=== PATIENT | male | born 1965 | race Caucasian/White ===

== ENCOUNTER → 2022-05-09 | Outpatient (CLI) | payer OTHER ==
[~2022-05-09] MED LIST: CEPH500C PO; CHLORHEXIDINE GLUCONATE PO; ENXP80I.8 PO; INSR1U SC; IPRA3AMP11 INH; WRF5T PO
== END ==
LOC: WOUNDCARE 13:46
PROVIDERS: ATTEND Family Medicine
DX: L97.222 Non-pressure chronic ulcer of left calf with fat layer exposed (principal); L03.116 Cellulitis of left lower limb; I70.242 Atherosclerosis of native arteries of left leg with ulceration of calf; I87.332 Chronic venous hypertension (idiopathic) with ulcer and inflammation of left lower extremity; I89.0 Lymphedema, not elsewhere classified; E11.622 Type 2 diabetes mellitus with other skin ulcer; E55.9 Vitamin D deficiency, unspecified; F17.219 Nicotine dependence, cigarettes, with unspecified nicotine-induced disorders; Z86.718 Personal history of other venous thrombosis and embolism
CPT/HCPCS: 87070; 87205; G0463; 99202

== ENCOUNTER → 2022-05-10 | Outpatient (CLI) | payer OTHER ==
--- NOTE | 2022-05-10 14:07 | Diagnostic Imaging Report ---
PROCEDURE: US left lower extremity venous. TECHNIQUE: Multiple Real-time grayscale images were obtained over the left lower extremity in various projections. Additional duplex Doppler and color Doppler images were also obtained. INDICATION: Pain and swelling in the left lower extremity. FINDINGS: Extensive left lower extremity DVT is noted. The common femoral vein appears patent; however, there is occlusive thrombus extending throughout the superficial femoral vein and popliteal vein as well as extension into the peroneal veins. No fluid collections are seen. IMPRESSION: Extensive left lower extremity DVT. Dictated by: Dictated on workstation # [id number]
== END ==
LOC: RAD 13:12
PROVIDERS: ATTEND Family Medicine
DX: I82.402 Acute embolism and thrombosis of unspecified deep veins of left lower extremity (principal); L97.222 Non-pressure chronic ulcer of left calf with fat layer exposed; L03.116 Cellulitis of left lower limb; I70.242 Atherosclerosis of native arteries of left leg with ulceration of calf; I87.332 Chronic venous hypertension (idiopathic) with ulcer and inflammation of left lower extremity; I89.0 Lymphedema, not elsewhere classified; E11.622 Type 2 diabetes mellitus with other skin ulcer; E55.9 Vitamin D deficiency, unspecified; F17.219 Nicotine dependence, cigarettes, with unspecified nicotine-induced disorders
CPT/HCPCS: 36415; 81241; 85300; 85303; 85306; 86147

== ENCOUNTER → 2022-05-16 | Outpatient (CLI) | payer OTHER ==
--- NOTE | 2022-05-16 16:43 | Diagnostic Imaging Report ---
TECHNIQUE: Multiple real-time grayscale images were obtained over the left lower extremity in various projections. Additional duplex Doppler and color Doppler images were also obtained. HISTORY: Ulceration of the calf, atherosclerosis of pilot station arteries left leg. Currently with an extensive left lower extremity DVT. COMPARISON: None FINDINGS: Left lower extremity: The major arteries of the left leg are patent to the ankle. There is detectable flow at the dorsalis pedis and posterior tibial arteries at the ankle. There is abnormal, dampened monophasic waveforms throughout the left lower extremity arterial system. There is no focal velocity changes to suggest a hemodynamically significant stenosis. IMPRESSION: 1. No large vessel occlusion or hemodynamically significant stenosis in the left lower extremity. Diffusely abnormal, dampened monophasic waveforms. May be attributed to the known extensive deep venous thrombosis. Dictated by: Dictated on workstation # [id number]
== END ==
LOC: RAD 15:58
PROVIDERS: ATTEND Family Medicine
DX: I70.242 Atherosclerosis of native arteries of left leg with ulceration of calf (principal)
CPT/HCPCS: 93926

== ENCOUNTER → 2022-05-16 | Outpatient (CLI) | payer OTHER | LOC: WOUNDCARE 14:27 | PROVIDERS: ATTEND Family Medicine | DX: L97.922 Non-pressure chronic ulcer of unspecified part of left lower leg with fat layer exposed (principal); L03.116 Cellulitis of left lower limb; I70.242 Atherosclerosis of native arteries of left leg with ulceration of calf; I87.332 Chronic venous hypertension (idiopathic) with ulcer and inflammation of left lower extremity; I89.0 Lymphedema, not elsewhere classified; E11.622 Type 2 diabetes mellitus with other skin ulcer; F17.219 Nicotine dependence, cigarettes, with unspecified nicotine-induced disorders; E55.9 Vitamin D deficiency, unspecified; I82.4Y2 Acute embolism and thrombosis of unspecified deep veins of left proximal lower extremity; B96.5 Pseudomonas (aeruginosa) (mallei) (pseudomallei) as the cause of diseases classified elsewhere; I96 Gangrene, not elsewhere classified | CPT/HCPCS: 99213 ==

== ENCOUNTER → 2022-05-22 | Outpatient (CLI) | payer OTHER | LOC: WOUNDCARE 16:02 | PROVIDERS: ATTEND Family Medicine | DX: I96 Gangrene, not elsewhere classified (principal); L97.222 Non-pressure chronic ulcer of left calf with fat layer exposed; L03.116 Cellulitis of left lower limb; I82.402 Acute embolism and thrombosis of unspecified deep veins of left lower extremity; I70.242 Atherosclerosis of native arteries of left leg with ulceration of calf; I87.332 Chronic venous hypertension (idiopathic) with ulcer and inflammation of left lower extremity; I89.0 Lymphedema, not elsewhere classified; E11.52 Type 2 diabetes mellitus with diabetic peripheral angiopathy with gangrene; E11.622 Type 2 diabetes mellitus with other skin ulcer; E55.9 Vitamin D deficiency, unspecified; B96.5 Pseudomonas (aeruginosa) (mallei) (pseudomallei) as the cause of diseases classified elsewhere; F17.219 Nicotine dependence, cigarettes, with unspecified nicotine-induced disorders | CPT/HCPCS: 99213 ==

== ENCOUNTER → 2022-05-26 | Outpatient (CLI) | payer OTHER | LOC: CARD 13:30 | PROVIDERS: ATTEND Internal Medicine Cardiovascular Disease | DX: I07.1 Rheumatic tricuspid insufficiency (principal); I11.9 Hypertensive heart disease without heart failure | CPT/HCPCS: 93306 ==

== ENCOUNTER → 2022-05-29 | Outpatient (CLI) | payer OTHER | LOC: WOUNDCARE 14:58 | PROVIDERS: ATTEND Family Medicine | DX: I96 Gangrene, not elsewhere classified (principal); L97.222 Non-pressure chronic ulcer of left calf with fat layer exposed; E11.52 Type 2 diabetes mellitus with diabetic peripheral angiopathy with gangrene; E11.622 Type 2 diabetes mellitus with other skin ulcer; I70.242 Atherosclerosis of native arteries of left leg with ulceration of calf; I82.402 Acute embolism and thrombosis of unspecified deep veins of left lower extremity; I87.332 Chronic venous hypertension (idiopathic) with ulcer and inflammation of left lower extremity; I89.0 Lymphedema, not elsewhere classified; F17.219 Nicotine dependence, cigarettes, with unspecified nicotine-induced disorders | CPT/HCPCS: 11042; 11045; 97607 ==

== ENCOUNTER → 2022-06-05 | Outpatient (CLI) | payer OTHER | LOC: WOUNDCARE 14:46 | PROVIDERS: ATTEND Family Medicine | DX: I96 Gangrene, not elsewhere classified (principal); L97.222 Non-pressure chronic ulcer of left calf with fat layer exposed; E11.52 Type 2 diabetes mellitus with diabetic peripheral angiopathy with gangrene; I70.242 Atherosclerosis of native arteries of left leg with ulceration of calf; I87.332 Chronic venous hypertension (idiopathic) with ulcer and inflammation of left lower extremity; I89.0 Lymphedema, not elsewhere classified; E11.622 Type 2 diabetes mellitus with other skin ulcer; E55.9 Vitamin D deficiency, unspecified; I82.402 Acute embolism and thrombosis of unspecified deep veins of left lower extremity; R77.8 Other specified abnormalities of plasma proteins; F17.218 Nicotine dependence, cigarettes, with other nicotine-induced disorders | CPT/HCPCS: 11042; 11045; 97607 ==

== ENCOUNTER → 2022-06-08 | Outpatient (CLI) | payer OTHER | LOC: WOUNDCARE 15:14 | PROVIDERS: ATTEND Family Medicine | DX: L97.929 Non-pressure chronic ulcer of unspecified part of left lower leg with unspecified severity (principal); J44.9 Chronic obstructive pulmonary disease, unspecified; I10 Essential (primary) hypertension | CPT/HCPCS: 97607 ==

== ENCOUNTER → 2022-06-12 | Outpatient (CLI) | payer OTHER | LOC: WOUNDCARE 15:09 | PROVIDERS: ATTEND Family Medicine | DX: L97.222 Non-pressure chronic ulcer of left calf with fat layer exposed (principal); I70.242 Atherosclerosis of native arteries of left leg with ulceration of calf; I87.332 Chronic venous hypertension (idiopathic) with ulcer and inflammation of left lower extremity; I89.0 Lymphedema, not elsewhere classified; E11.622 Type 2 diabetes mellitus with other skin ulcer; E55.9 Vitamin D deficiency, unspecified; I82.402 Acute embolism and thrombosis of unspecified deep veins of left lower extremity; E11.52 Type 2 diabetes mellitus with diabetic peripheral angiopathy with gangrene; R77.8 Other specified abnormalities of plasma proteins; F17.219 Nicotine dependence, cigarettes, with unspecified nicotine-induced disorders | CPT/HCPCS: 97597; 97598; 97607 ==

== ENCOUNTER 2022-06-16 10:31 | Inpatient (IN) | payer OTHER ==
[~2022-06-16] VITALS: Ht 172.7 cm; Wt 77.2 kg
[~2022-06-16 10:31] MED LIST changes: -AMLO-251 PO; -ATOR40TA70 PO; -LISI40TA9 PO; -RIVA10T PO; -TERA5CAP10 PO
[2022-06-16] MEDS ORDERED: NS IV 1000 ML 1,000 ML IV SCH (10:45)
[2022-06-16] MEDS ORDERED: LIDOCAINE 4% CREAM 5 GM (LMX) TOP ONE (11:00)
[2022-06-16] MEDS ORDERED: fentaNYL INJ 100 MCG/2 ML AMP IVP ONE ×2 (11:00→13:45)
--- NOTE | 2022-06-16 11:00 | ED Cardiac General ---
History of Present Illness General Chief Complaint: Cardiac/General Problems Stated Complaint: LOW BP,PASSED OUT Source: patient Exam Limitations: no limitations History of Present Illness Date Seen by Provider: Jun 16, 2022 Time Seen by Provider: 10:58 Initial Comments To ER by wheelchair from wound care. He presented there for routine wound care for his arterial insufficiency ulcers left lower extremity. He noticed himself to be feeling lightheaded in their waiting room and was found to be hypotensive so he was brought over here. Denies fevers or chills. Does report general weakness. Normally he takes half of a norvasc 10mg tablet but today he took 10. . He has had some leg weakness and general malaise for a couple of days. States that his wounds are healing nicely and he has no concern of infection. Timing/Duration: changing over time Severity: moderate Location: central Activities at Onset: none NTG SL MANAGER HEART: No ASA po MANAGER HEART: No Associated Systoms: Denies Symptoms Allergies and Home Medications Allergies Coded Allergies: ciprofloxacin (Verified Allergy, Mild, 12/23/11) ciprofloxacin HCl (Verified Allergy, Mild, 12/23/11) Patient Home Medication List Home Medication List Reviewed: Yes Albuterol/Ipratropium (Duoneb Rt) 3 Ml Nebu, 3 ML INH RTQ4HR Prescribed by: YUKO NEWMAN on 01/24/15 1017 Albuterol/Ipratropium (Duoneb Rt) 3 Ml Nebu, 3 ML INH RTQ2H PRN for SOB Prescribed by: YUKO NEWMAN on 01/24/15 1017 Enoxaparin (Lovenox) 80 Mg/0.8 Ml Soln, 80 MG PO DAILY, (Reported) Entered as Reported by: DERIK JENSENET on 12/23/112055 Insulin Human Regular (NovoLIN R PER UNIT (ED,SDC,OR ONLY)) 1 Unit/0.01 Ml Soln, 0 UNIT SC Q6HR Prescribed by: YUKO NEWMAN on 01/24/15 1017 Warfarin Sodium (Coumadin) 5 Mg Tablet, 10 MG PO DAILY, (Reported) Entered as Reported by: DERIK NOWAKTREET on 12/23/112055 [Chlorhexidine Gluconate] 15 ML SOLN, 15 ML PO PRN PRN for ORAL CARE Prescribed by: YUKO NEWMAN on 01/24/15 1017 Review of Systems Review of Systems Constitutional: see HPI; No chills, No fever; malaise, weakness EENTM: No Symptoms Reported Respiratory: No Symptoms Reported Cardiovascular: No Symptoms Reported Gastrointestinal: No Symptoms Reported Genitourinary: No Symptoms Reported Musculoskeletal: no symptoms reported Skin: no symptoms reported Psychiatric/Neurological: No Symptoms Reported Endocrine: No Symptoms Reported Hematologic/Lymphatic: No Symptoms Reported Past Plqanbk-Zvzvql-Bgnwne Hx Past Medical History COPD Deep Vein Thrombosis Hepatitis Back Injury, Chronic Back Pain Adverse Reaction/Blood Tranf: No Physical Exam Vital Signs Vital Signs - First Documented 06/16/22 10:37 Temp 35.9 Pulse 86 Resp 17 B/P (MAP) 95/52 (66) O2 Delivery Room Air Capillary Refill : Height, Weight, BMI Height: 5'7.00" Weight: 190lbs. 0.0oz. 86.831622fx; BMI Method: General Appearance: No Apparent Distress, WD/WN, Other (Alert oriented. Conversational very pleasant no distress. He is hypotensive at 81/43. Not tachycardic.) Neck: Full Range of Motion, Normal Inspection Respiratory: No Accessory Muscle Use, No Respiratory Distress Cardiovascular: Regular Rate, Rhythm, Normal Peripheral Pulses Gastrointestinal: Normal Bowel Sounds, Non Tender, Soft Extremity: Normal Capillary Refill, Normal Inspection Neurologic/Psychiatric: Alert, Oriented x3 Skin: Normal Color, Warm/Dry Focused Exam Lactate Level 06/16/22 12:43: Lactic Acid Level 1.14 Lactic Acid Level Laboratory Tests Test 06/16/22 12:43 Lactic Acid Level 1.14 MMOL/L (0.50-2.00) Procedures/Interventions Lumen: triple Central Line Procedure: betadine prep, sterile drapes applied, sterile dressing applied Position: internal jugular (R) Anesthesia: local Volume Anesthetic (ccs): 4 Complications: none Post Position: sutured, good blood return, position confirmed w/ CXR Progress/Results/Core Measures Results/Orders Lab Results Laboratory Tests Test 06/16/22 10:44 06/16/22 12:43 Range/Units White Blood Count 5.2 4.3-11.0 10^3/uL Red Blood Count 4.04 L 4.30-5.52 10^6/uL Hemoglobin 12.2 L 13.3-17.7 g/dL Hematocrit 36 L 40-54 % Mean Corpuscular Volume 89 80-99 fL Mean Corpuscular Hemoglobin 30 25-34 pg Mean Corpuscular Hemoglobin Concent 34 32-36 g/dL Red Cell Distribution Width 12.9 10.0-14.5 % Platelet Count 230 130-400 10^3/uL Mean Platelet Volume 9.0 9.0-12.2 fL Immature Granulocyte % (Auto) 0 % Neutrophils (%) (Auto) 58 42-75 % Lymphocytes (%) (Auto) 25 12-44 % Monocytes (%) (Auto) 9 0-12 % Eosinophils (%) (Auto) 7 0-10 % Basophils (%) (Auto) 0 0-10 % Neutrophils # (Auto) 3.0 1.8-7.8 10^3/uL Lymphocytes # (Auto) 1.3 1.0-4.0 10^3/uL Monocytes # (Auto) 0.5 0.0-1.0 10^3/uL Eosinophils # (Auto) 0.4 H 0.0-0.3 10^3/uL Basophils # (Auto) 0.0 0.0-0.1 10^3/uL Immature Granulocyte # (Auto) 0.0 0.0-0.1 10^3/uL Sodium Level 133 L 135-145 MMOL/L Potassium Level 4.3 3.6-5.0 MMOL/L Chloride Level 104 98-107 MMOL/L Carbon Dioxide Level 19 L 21-32 MMOL/L Anion Gap 10 5-14 MMOL/L Blood Urea Nitrogen 53 H 7-18 MG/DL Creatinine 2.05 H 0.60-1.30 MG/DL Estimat Glomerular Filtration Rate 37 BUN/Creatinine Ratio 26 Glucose Level 159 H 70-105 MG/DL Calcium Level 9.5 8.5-10.1 MG/DL Corrected Calcium 9.5 8.5-10.1 MG/DL Magnesium Level 2.0 1.6-2.4 MG/DL Total Bilirubin 0.4 0.1-1.0 MG/DL Aspartate Amino Transf (AST/SGOT) 23 5-34 U/L Alanine Aminotransferase (ALT/SGPT) 17 0-55 U/L Alkaline Phosphatase 99 40-136 U/L Myoglobin 114.7 H 10.0-92.0 NG/ML Troponin I < 0.028 <0.028 NG/ML Total Protein 7.6 6.4-8.2 GM/DL Albumin 4.0 3.2-4.5 GM/DL Lactic Acid Level 1.14 0.50-2.00 MMOL/L My Orders Orders - ALVINA LARA APRN Lidocaine 4% Cream (Lmx 4 Cream) (06/16/22 11:00) Fentanyl Inj (Sublimaze Injection) (06/16/22 11:00) Lidocaine 4% Topical (Xylocaine Topical (06/16/22 11:15) Lidocaine 4% 5 Ml (Xylocaine 4%) (06/16/22 11:15) Lactated Ringers (Lr 1000 Ml Iv Solution (06/16/22 11:30) Chest 1 View, Ap/Pa Only (06/16/22 12:06) Fentanyl Inj (Sublimaze Injection) (06/16/22 12:38) Norepinephrine 8 Mg/250 Ml (Norepinephri (06/16/22 13:00) Ed Admission (Communication) (06/16/22 13:27) Blood Culture (06/16/22 13:27) Lactic Acid Analyzer (06/16/22 13:27) Medications Given in ED Current Medications Medications Dose Ordered Sig/Pam Route Start Time Stop Time Status Last Admin Dose Admin Fentanyl Citrate 50 mcg ONCE ONCE IVP 06/16/22 11:00 06/16/22 11:01 DC 06/16/22 11:04 50 MCG Lidocaine HCl ONCE ONCE TP 06/16/22 11:15 06/16/22 11:16 DC 06/16/22 11:29 2,000 MG Lidocaine HCl 5 ml ONCE ONCE TOP 06/16/22 11:15 06/16/22 11:16 DC 06/16/22 11:30 5 ML Vital Signs/I&O 06/16/22 06/16/22 10:37 13:10 Temp 35.9 Pulse 86 74 Resp 17 B/P (MAP) 95/52 (66) 84/52 O2 Delivery Room Air Departure Communication (Admissions) 1143-patient has had 500 mL of his first bag of fluids. Blood pressure down to 71/42. Remains alert and oriented very pleasant states he is feeling okay. 1244-has had 1.5 L of LR. Blood pressure still 79/51. Not tachycardic alert mentating well. Central line placed Levophed to be started. NAME: ZI [facility]AC[facility] REC#: [id number] PT STATUS: REG ER : 1965 PHYSICIAN: SEAMUS FRANCISCO MD ADMIT DATE: 06/16/22/ER Draft Date of Exam:06/16/22 CHEST 1 VIEW, AP/PA ONLY EXAMINATION: Chest 1 view HISTORY: Chest pain. COMPARISON: 01/24/2015. FINDINGS: The lung volumes are normal. No focal consolidation is seen. Small amount of patchy opacities are seen in the lung bases. No large pleural effusion or pneumothorax is seen. The cardiomediastinal silhouette is normal in size and contour. No acute osseous abnormality is seen. IMPRESSION: 1. Small amount of patchy opacities in the lung bases, which may represent atelectasis or infection. No focal consolidation or pleural effusion. Dictated on workstation # [id number] Dict: 06/16/22 1111 Trans: 06/16/22 1115 [facility] [id number] Interpreted by: IGOR CABRAL DO Electronically signed by: Impression Primary Impression: Hypotension Disposition: ADMITTED INPATIENT Condition: Stable Admissions Decision to Admit Reason: Admit from ER (General) Departure-Patient Inst. Referrals: NO,LOCAL PHYSICIAN (PCP/Family) Primary Care Physician ALVINA LARA APRN Jun 16, 2022 11:00
[2022-06-16 11:03] LABS: BASOPHILS % (AUTO) 0 % (0-10); EOSINOPHILS # (AUTO) 0.4 10^3/uL (0.0-0.3); EOSINOPHILS % (AUTO) 7 % (0-10); HEMATOCRIT 36 % (40-54); HEMOGLOBIN 12.2 g/dL (13.3-17.7); LYMPHOCYTES # (AUTO) 1.3 10^3/uL (1.0-4.0); LYMPHOCYTES % (AUTO) 25 % (12-44); MEAN CORPUSCULAR HEMOGLOBIN 30 pg (25-34); MEAN CORPUSCULAR HGB CONC 34 g/dL (32-36); MEAN CORPUSCULAR VOLUME 89 fL (80-99); MONOCYTES # (AUTO) 0.5 10^3/uL (0.0-1.0); MONOCYTES % (AUTO) 9 % (0-12); NEUTROPHILS % (AUTO) 58 % (42-75); PLATELET COUNT 230 10^3/uL (130-400); WHITE BLOOD COUNT 5.2 10^3/uL (4.3-11.0)
[2022-06-16 11:10] LABS: POTASSIUM 4.3 MMOL/L (3.6-5.0)
[2022-06-16 11:11] LABS: CALCIUM 9.5 MG/DL (8.5-10.1)
[2022-06-16 11:12] LABS: TOTAL PROTEIN 7.6 GM/DL (6.4-8.2)
[2022-06-16 11:14] LABS: BILIRUBIN,TOTAL 0.4 MG/DL (0.1-1.0)
[2022-06-16] MEDS ORDERED: LIDOCAINE TOPICAL 4% 50 ML BTL TP ONE (11:15)
[2022-06-16] MEDS ORDERED: LIDOCAINE 4% INJ (XYLOCAINE) 5ML AMP TOP ONE (11:15)
[2022-06-16 11:16] LABS: CREATININE SERUM 2.05 MG/DL (0.60-1.30)
--- NOTE | 2022-06-16 11:16 | Diagnostic Imaging Report ---
EXAMINATION: Chest 1 view HISTORY: Chest pain. COMPARISON: 01/24/2015. FINDINGS: The lung volumes are normal. No focal consolidation is seen. Small amount of patchy opacities are seen in the lung bases. No large pleural effusion or pneumothorax is seen. The cardiomediastinal silhouette is normal in size and contour. No acute osseous abnormality is seen. IMPRESSION: 1. Small amount of patchy opacities in the lung bases, which may represent atelectasis or infection. No focal consolidation or pleural effusion. Dictated by: Dictated on workstation # [id number]
[2022-06-16] MEDS ORDERED: LACTATED RINGERS 1,000 ML IV SCH (11:30)
[2022-06-16] MEDS ORDERED: fentaNYL INJ 100 MCG/2 ML AMP ONE (12:38)
--- NOTE | 2022-06-16 13:05 | Diagnostic Imaging Report ---
CLINICAL INDICATION: Patient with central line placement. EXAM: Portable chest x-ray upright view. COMPARISON: Chest x-ray dated 06/16/2022 at 1055 hours. FINDINGS AND IMPRESSION: 1: There is interval placement of a right IJ central line with distal tip overlying the expected region of the proximal to mid superior vena cava region. There is no pneumothorax. 2: The remainder of this exam shows no significant interval change compared to the prior study of comparison. Dictated by: Dictated on workstation # [id number]
[2022-06-16] MEDS: NOREPINEPHRINE 8 MG/250 ML 250 ML IV SCH (13:10)
[2022-06-16] MEDS ORDERED: ACETAMINOPHEN 325 MG TABLET PO PRN (14:45)
[2022-06-16] MEDS ORDERED: polyethylene glycoL POWDER 17 GM (MIRALAX) PACK PO PRN (14:45)
[2022-06-16] MEDS ORDERED: CALCIUM CARBONATE 500 MG (TUMS) TAB.CHEW PO PRN (14:45)
[2022-06-16] MEDS ORDERED: diphenhydrAMINE 50 MG/ML INJ (BENADRYL) IVP PRN (14:45)
[2022-06-16] MEDS ORDERED: diphenhydrAMINE 25 MG TAB (BENADRYL) PO PRN (14:45)
[2022-06-16] MEDS ORDERED: ONDANSETRON 4 MG (ZOFRAN) ORAL DISSOLVE TAB PO PRN (14:45)
[2022-06-16] MEDS ORDERED: BISACODYL 10 MG SUPP (DULCOLAX) PR PRN (14:45)
[2022-06-16] MEDS ORDERED: MELATONIN 3 MG TABLET PO PRN (14:45)
[2022-06-16] MEDS ORDERED: MILK OF MAGNESIA 400 MG/5 ML 30 ML UDC PO PRN (14:45)
[2022-06-16] MEDS ORDERED: ANTACID SUSP 30 ML UDC (MYLANTA) PO PRN (14:45)
[2022-06-16] MEDS ORDERED: NS IV 500 ML 500 ML IV PRN (14:45)
[2022-06-16] MEDS ORDERED: ONDANSETRON 4 MG/2 ML (SDV) Z0FRAN IV PRN (14:45)
[2022-06-16] MEDS ORDERED: LACTULOSE SYRUP 10GM/15ML (ENULOSE) 30ML UDC PO PRN (14:45)
--- NOTE | 2022-06-16 15:05 | Physical Therapy Progress Note ---
Therapy Progress Note Order for PT evaluation received. Nurse states patient is on hold for now, he just got to his room, is till hypotensive, and has not gotten any fluids yet. Will check back tomorrow. ALMA JOHN PT Jun 16, 2022 15:05
--- NOTE | 2022-06-16 15:21 | Occ Therapy Progress Note ---
Therapy Progress Note OT orders received, nurse states pt is on hold at this time due to just getting to his room and he is still hypotensive and hasn't received fluids yet. OT will attempt again next available date. BHARAT DEL ANGEL OT Jun 16, 2022 15:21
[2022-06-16] MEDS ORDERED: ENOXAPARIN 40 MG/0.4 ML (LOVENOX) SYR SC SCH ×2 (15:30→21:00)
[2022-06-16] MEDS ORDERED: NS IV 1000 ML 1,000 ML ONE (15:52)
--- NOTE | 2022-06-16 16:22 | Tele-ICU Consult ---
History of Present Illness History of Present Illness Date Seen by Provider: Jun 16, 2022 Time Seen by Provider: 16:21 Date of Admission (Tele-ICU Physician , consultation) Available chart/ vitals / labs / Images reviewed H&P is from ER notes Patient's information available about PMH, Shx, Fhx allergy reviewed inEMR. ROS as per chart and RN report Now in ICU, hemodynamically stable Video assessment done using teleICU camera, rest of exam as per RN Discussed with RN. Consultants: Hospital course: A/P Hypotension = ? incidental OD hypertensive meds today ( took downle dose norvask by mistake ) vs other etiology - less likely PE with no hypoxia , at risk for PE with recent extensive DVT ( on AC with xarelto , last dose this AM - ? infection with wounds - RN to contact wound center , consider ABX - less likely cardiac in etiology , ECHO 05/29/22 EXTRA NORVASK TAKEN THIS AM AT 9 AM ( 1/2 life is > 24 h ) - CONT IVF , MONITOR , WEAN OFF PRESSORS . IF STILL HYPOTENSIVE BY TOMORROW WILL NEED TO DO VQ TO R/O PE AND START Left leg ulcers - as per wound care - being followed in wound center- ? need abx Recent DVT on left leg 04/2022 - on xarelto , compliant as per report , but taking it in AM with milk only ( absorbtion can be unadequate h/o COPD - stable Lines : , (Central Line Necessity Reviewed) Lozano: OG: Nutrition: Analgesia: Anxiety/ delirium VTE Prophylaxis: Stress Ulcer Prophylaxis: Glycemic Control: Plans in collaboration with bedside consultants and IM MDs. Discussed with RN to reach out if any questions or concerns A total of 33 minutes of critical care time was devoted to this patient today, required to treat and/or prevent further deterioration of critical care condition ( as above Allergies and Home Medications Allergies Coded Allergies: ciprofloxacin (Verified Allergy, Mild, 12/23/11) ciprofloxacin HCl (Verified Allergy, Mild, 12/23/11) Home Medications Albuterol/Ipratropium 3 Ml Nebu, 3 ML INH RTQ4HR Prescribed by: YUKO NEWMAN on 01/24/15 1017 Albuterol/Ipratropium 3 Ml Nebu, 3 ML INH RTQ2H PRN for SOB Prescribed by: YUKO NEWMAN on 01/24/15 1017 Enoxaparin 80 Mg/0.8 Ml Soln, 80 MG PO DAILY, (Reported) Insulin Human Regular 1 Unit/0.01 Ml Soln, 0 UNIT SC Q6HR Prescribed by: YUKO NEWMAN on 01/24/15 1017 Warfarin Sodium 5 Mg Tablet, 10 MG PO DAILY, (Reported) [Chlorhexidine Gluconate] 15 ML SOLN, 15 ML PO PRN PRN for ORAL CARE Prescribed by: YUKO NEWMAN on 01/24/15 1017 Past Medical/Social/Family Hx Patient Social History Tobacco Use?: Yes Tobacco type used: Cigarettes Smoking Status: Current Everyday Smoker Smokeless Tobacco Frequency: Never a User Use of E-Cig and/or Vaping dev: No E-Cig and/or Vaping Freq: Never a User Substance use?: No Substance type: Marijuana Substance frequency: Rarely Alcohol Use?: No CLEAN SINCE 2008 Pt stated abuse/neglect: No Immunizations Up To Date Influenza Vaccine Up-to-Date: Yes; Up-to-Date Tetanus Booster (TDap): Less Than 5 Years Current Status Advance Directives: No Advance Directive Location: Home Communicates: Verbally Primary Language: Tunisian Preferred Spoken Language: Tunisian Is interpretation needed?: No Implanted or Applied Medical D: Other Review of Systems Constitutional: see HPI Focused Exam Lactate Level 06/16/22 12:43: Lactic Acid Level 1.14 Height, Weight, BMI Height: 5'7.00" Weight: 190lbs. 0.0oz. 86.427625vf; 25.17 BMI Method: Lactic Acid Level Laboratory Tests Test 06/16/22 12:43 Lactic Acid Level 1.14 MMOL/L (0.50-2.00) Exam Exam Patient acknowledged, consented, and participated in this virtual visit which was conducted using real time audio/video Vital Signs Date Time Temp Pulse Resp B/P (MAP) Pulse Ox O2 Delivery O2 Flow Rate FiO2 06/16/22 16:00 75 18 113/76 91 Room Air 06/16/22 14:57 36.0 64 12 104/72 92 Room Air 06/16/22 14:54 68 06/16/22 13:10 74 84/52 06/16/22 10:37 35.9 86 17 95/52 (66) Room Air Height & Weight Height: 5'7.00" Weight: 190lbs. 0.0oz. 86.622118in; 25.17 BMI Method: General Appearance: No Apparent Distress, WD/WN, Other (Alert oriented. Conversational very pleasant no distress. He is hypotensive at 81/43. Not tachycardic.) Neck: Full Range of Motion, Normal Inspection Respiratory: No Accessory Muscle Use, No Respiratory Distress Cardiovascular: Regular Rate, Rhythm, Normal Peripheral Pulses Capillary Refill: Less Than 3 Seconds Extremity: Normal Capillary Refill, Normal Inspection Neurologic/Psychiatric: Alert, Oriented x3 Skin: Normal Color, Warm/Dry Results Lab Laboratory Tests 06/16/22 10:44 Assessment/Plan Assessment/Plan 1 CARMEN OCASIO MD Jun 16, 2022 16:21
[2022-06-16 16:36] LABS: INR 1.7 (0.8-1.4)
[2022-06-16] MEDS: NS IV 1000 ML 1,000 ML IV SCH ×2 (18:15→20:05)
[2022-06-16] MEDS ORDERED: TERA5CAP10 PO (18:43)
[2022-06-16] MEDS ORDERED: ATOR40TA70 PO (18:43)
[2022-06-16] MEDS ORDERED: AMLO-251 PO (18:43)
[2022-06-16] MEDS ORDERED: LISI40TA9 PO (18:43)
[2022-06-16] MEDS ORDERED: RIVA10T PO (18:44)
[2022-06-16] MEDS: ENOXAPARIN 80 MG/0.8 ML (LOVENOX) SYR SC SCH (20:06)
[2022-06-16] MEDS: DOCUSATE SODIUM 100 MG (COLACE) CAP PO SCH (21:00)
[2022-06-16] MEDS ORDERED: TERAZOSIN 5 MG (HYTRIN) CAPSULE PO SCH (21:00)
[2022-06-16] MEDS: SENNOSIDES 8.6 MG (SENOKOT) TAB PO SCH (21:00)
[2022-06-16 21:05] VITALS: BP 114/58
[2022-06-16 21:28] LABS: AMPHETAMINE SCREEN, URINE POSITIVE (NEGATIVE); BARBITURATE SCREEN URINE NEGATIVE (NEGATIVE); BENZODIAZEPINES SCREEN URINE NEGATIVE (NEGATIVE); CANNABINOID SCREEN, URINE NEGATIVE (NEGATIVE); COCAINE SCREEN URINE NEGATIVE (NEGATIVE); METHADONE STAT NEGATIVE (NEGATIVE); OPIATE SCREEN URINE NEGATIVE (NEGATIVE); OXYCODONE STAT NEGATIVE (NEGATIVE); PROPOXYPHENE STAT NEGATIVE (NEGATIVE); TRICYCLIC ANTIDEPRESSANTS SCRE NEGATIVE (NEGATIVE)
[2022-06-16] MEDS ORDERED: RT-ALBUTEROL/IPRATROPIUM 3 ML (DUONEB) VIAL INH PRN (21:30)
--- NOTE | 2022-06-16 21:35 | Tele-ICU Progress Note ---
Progress Note TeleICU S: 56 yo man admitted earlier this morning with hypotension and possible overmedicated with anti-HTN RX He is presently under care of wound care clinic for chronic leg wounds, and is on xarelto and lovenox for DVT in E since 05/12 . Nursing called because pt appears shaky and she thought he had an episode of non sustained VT that was not captured and he also complained of some chest pain, which resolved without treatment. Taking po diet without complaint. O: EKG sent from bedside now is sinus rhythm no st-t wave changes. sats 94% BP running in 110-114 systolic range --He has been on low dose levophed since admission . Per video- He is currently comfortable, on cell phone, no complaints, sinus on monitor in 80s. Earlier labs showed LA 1.14, nl trop, myoglobin 114.7 electrolytes normal BUN 53 Cr 2.05 Reviewing records also shows that he was given fentanyl twice since admission and that he has a prior history of fentanyl overdose - A: 1- Hypotension- of uncertain etiology 2- Renal insufficiency (GFR 37) 3- peripheral vascular disease with chronic leg ulcers and recent DVT- on anti coagulants P: Will send repeat CBC, troponin now and obtain stat UA /reflex culture , urine drug screen and random cortisol . AM labs have already been ordered. D/W nursing. Focused Exam Lactate Level 06/16/22 12:43: Lactic Acid Level 1.14 Height, Weight, BMI Height: 5'7.00" Weight: 190lbs. 0.0oz. 86.943590yf; 25.17 BMI Method: RACHEL ROSEN DO Jun 16, 2022 21:35
[2022-06-16 21:51] LABS: BILIRUBIN,URINE NEGATIVE (NEGATIVE); CLARITY,URINE CLEAR; COLOR,URINE YELLOW; GLUCOSE, URINE (UA) NEGATIVE (NEGATIVE); KETONES,URINE NEGATIVE (NEGATIVE); LEUKOCYTE ESTERASE ,URINE NEGATIVE (NEGATIVE); NITRITE,URINE NEGATIVE (NEGATIVE); PROTEIN,URINE NEGATIVE (NEGATIVE)
[2022-06-16 21:59] LABS: BACTERIA,URINE TRACE /HPF; RBC,URINE RARE /HPF
[2022-06-16 22:00] LABS: BASOPHILS % (AUTO) 0 % (0-10); EOSINOPHILS # (AUTO) 0.5 10^3/uL (0.0-0.3); EOSINOPHILS % (AUTO) 6 % (0-10); HEMATOCRIT 34 % (40-54); HEMOGLOBIN 11.5 g/dL (13.3-17.7); LYMPHOCYTES # (AUTO) 1.4 10^3/uL (1.0-4.0); LYMPHOCYTES % (AUTO) 18 % (12-44); MEAN CORPUSCULAR HEMOGLOBIN 30 pg (25-34); MEAN CORPUSCULAR HGB CONC 34 g/dL (32-36); MEAN CORPUSCULAR VOLUME 88 fL (80-99); MEAN PLATELET VOLUME 8.9 fL (9.0-12.2); MONOCYTES # (AUTO) 0.7 10^3/uL (0.0-1.0); MONOCYTES % (AUTO) 9 % (0-12); NEUTROPHILS # (AUTO) 5.3 10^3/uL (1.8-7.8); NEUTROPHILS % (AUTO) 67 % (42-75); PLATELET COUNT 256 10^3/uL (130-400); WHITE BLOOD COUNT 7.9 10^3/uL (4.3-11.0)
[2022-06-16] MEDS: RT-ALBUTEROL/IPRATROPIUM 3 ML (DUONEB) VIAL INH SCH (22:27)
[2022-06-17] MEDS: NS IV 1000 ML 1,000 ML IV SCH ×3 (00:04→07:26)
[2022-06-17] MEDS: RT-ALBUTEROL/IPRATROPIUM 3 ML (DUONEB) VIAL INH SCH ×3 (02:39→10:11)
[2022-06-17 03:52] LABS: HEMATOCRIT 31 % (40-54); HEMOGLOBIN 10.6 g/dL (13.3-17.7); MEAN CORPUSCULAR HEMOGLOBIN 31 pg (25-34); MEAN CORPUSCULAR HGB CONC 34 g/dL (32-36); MEAN CORPUSCULAR VOLUME 89 fL (80-99); PLATELET COUNT 197 10^3/uL (130-400); WHITE BLOOD COUNT 5.2 10^3/uL (4.3-11.0)
[2022-06-17 04:03] LABS: POTASSIUM 4.4 MMOL/L (3.6-5.0)
[2022-06-17 04:04] LABS: CALCIUM 8.2 MG/DL (8.5-10.1)
[2022-06-17 04:06] LABS: TRIGLYCERIDES 115 MG/DL (<150); VLDL CHOLESTEROL 23 MG/DL (5-40)
[2022-06-17 04:09] LABS: CREATININE SERUM 1.09 MG/DL (0.60-1.30)
[2022-06-17 04:11] LABS: CHOLESTEROL 147 MG/DL (< 200); MAGNESIUM 1.9 MG/DL (1.6-2.4)
[2022-06-17 04:12] LABS: HDL CHOLESTEROL 32 MG/DL (40-60)
[2022-06-17] MEDS: NOREPINEPHRINE 8 MG/250 ML 250 ML IV SCH (04:45)
[2022-06-17] MEDS ORDERED: POTASSIUM CL 10MEQ/50ML IVPB 50 ML IV SCH (06:00)
[2022-06-17] MEDS ORDERED: MAGNESIUM 1 GM/100 ML IVPB 100 ML IV SCH (06:00)
[2022-06-17] MEDS ORDERED: KCL 20 MEQ TAB (K-DUR) PO SCH (06:00)
[2022-06-17] MEDS: DOCUSATE SODIUM 100 MG (COLACE) CAP PO SCH (08:14)
[2022-06-17] MEDS: SENNOSIDES 8.6 MG (SENOKOT) TAB PO SCH (08:14)
[2022-06-17] MEDS: ENOXAPARIN 80 MG/0.8 ML (LOVENOX) SYR SC SCH (08:38)
--- NOTE | 2022-06-17 09:01 | History & Physical-Hospitalist ---
History of Present Illness HPI/Chief Complaint Bennie Wing is a 56 year old male with PMH HTN, HLD, BPH, DVT, arterial insufficiency, who presented with lightheadedness. He was at the wound clinic when this occured. He says he was in his normal state of health prior to this event. He stood up and became dizzy. He was told he passed out. He denies chest pain and palpitaitons. He denies shortness of breath and cough. He denies fevers and chills. He denies abdominal pain. He denies nausea and vomiting. He denies diarrhea. He denies dysuria. He has some urinary issues associated with BPH which are unchanged. His says he has been working out side recently. He has not been drinking much water. He only drinks milk and soda. He also took a higher dose than normal of his Norvasc this morning, taking a whole pill instead of a half pill. Source: patient, family Exam Limitations: no limitations Date Seen 06/16/22 Time Seen by a Provider: 18:00 Attending Physician No,Local Physician PCP Admitting Physician: Bhargav Humphries MD Attending Physician: Bhargav Humphries MD Referring Physician Date of Admission Jun 16, 2022 at 13:29 Home Medications & Allergies Home Medications Reviewed patient Home Medication Reconciliation performed by pharmacy medication reconciliations flight test data acquisition technician and/or nursing. Patients Allergies have been reviewed. Allergies Allergies Coded Allergies ciprofloxacin (Verified Allergy, Mild, 12/23/11) ciprofloxacin HCl (Verified Allergy, Mild, 12/23/11) Past Cffefnu-Xzdcuu-Gqtrpe Hx Patient Social History Tobacco Use?: Yes Tobacco type used: Cigarettes Smoking Status: Current Everyday Smoker Smokeless Tobacco Frequency: Never a User Use of E-Cig and/or Vaping dev: No Use of E-Cig and/or Vaping Dez: Never a User Substance use?: No Substance type: Marijuana Substance frequency: Rarely Alcohol Use?: No Additional Alcohol Comments: CLEAN SINCE 2008 Pt feels they are or have been: No Immunizations Up To Date Tetanus Booster (TDap): Less Than 5 Years Current Status Advance Directives: No Advance Directive Location: Home Communicates: Verbally Primary Language: Citizen Of [place] Preferred Spoken Language: Citizen Of [place] Is interpretation needed?: No Implanted or Applied Medical D: Other Past Medical History COPD Deep Vein Thrombosis Hepatitis Back Injury, Chronic Back Pain Adverse Reaction/Blood Tranf: No Family Medical History No Pertinent Family Hx Review of Systems Constitutional: dizziness EENTM: no symptoms reported Respiratory: no symptoms reported Cardiovascular: no symptoms reported Gastrointestinal: no symptoms reported Physical Exam Physical Exam Vital Signs Vital Signs - First Documented 06/16/22 06/16/22 06/16/22 06/17/22 10:37 14:41 21:05 00:45 Temp 35.9 Pulse 86 Resp 17 B/P (MAP) 95/52 (66) Pulse Ox 98 O2 Delivery Room Air O2 Flow Rate 2.00 FiO2 21 Capillary Refill : Less Than 3 Seconds Height, Weight, BMI Height: 5'7.00" Weight: 190lbs. 0.0oz. 86.291400yd; 25.88 BMI Method: General Appearance: No Apparent Distress, WD/WN HEENT: PERRL/EOMI, Pharynx Normal Neck: Normal Inspection, Supple Respiratory: Lungs Clear, Normal Breath Sounds, No Respiratory Distress Cardiovascular: Regular Rate, Rhythm, No Edema, No Murmur Gastrointestinal: Normal Bowel Sounds, Non Tender, Soft Extremity: Normal Inspection, No Pedal Edema Neurologic/Psychiatric: Alert, No Motor/Sensory Deficits, Normal Mood/Affect Skin: Normal Color, Warm/Dry Results Results/Procedures Labs Laboratory Tests 06/16/22 10:44 06/16/22 21:51 06/17/22 03:30 Patient resulted labs reviewed. Imaging: Reviewed Imaging Report Assessment/Plan Admission Diagnosis Hypovolemic shock Admission Status: Inpatient Order (span 2 midnights) Reason for Inpatient Admission: Dehydration Acute kidney injury Assessment and Plan Hypovolemic shock Acute kidney injury IV fluids Levophed as needed Infectious workup negative thus far No antibiotics TeleICU consulted UA pending UTox pending HTN Hold antihypertensives HLD BPH Continue home meds Arterial insufficiency Leg wounds Wound care DVT prophylaxis: Lovenox Critical Care Critically Ill Patient Diagnosis/Problems Diagnosis/Problems (1) Hypovolemic shock Status: Acute (2) ROSY (acute kidney injury) Status: Acute (3) HTN (hypertension) Status: Chronic (4) DVT (deep venous thrombosis) Status: Chronic (5) HLD (hyperlipidemia) Status: Chronic (6) BPH (benign prostatic hyperplasia) Status: Chronic (7) Arterial insufficiency with ischemic ulcer Status: Chronic Clinical Quality Measures AMI/AHF: ASA po Prior to arrival: BHARGAV Carrillo MD Jun 17, 2022 09:01
--- NOTE | 2022-06-17 09:23 | Physical Therapy Evaluation ---
PT Evaluation-General Medical Diagnosis Admission Date Jun 16, 2022 at 13:29 Medical Diagnosis: Arterial insufficiency, Ulcers LLE, hypotension Onset Date: Jun 16, 2022 Therapy Diagnosis Therapy Diagnosis: Gait deficit Height/Weight Height (Feet): 5 Height (Inches): 7.00 Weight (Pounds): 190 Weight (Ounces): 0.0 Precautions Precautions/Isolations: Fall Prevention, Standard Precautions Weight Bear Status Right Lower Extremity: Right Weight Bearing/Tolerated Left Lower Extremity: Left Weight Bearing/Tolerated Referral Physician: Dr. Humphries Reason for Referral: Evaluation/Treatment Social History Home: Single Level Current Living Status: Children Entry Into Home: Stairs With Railing PT Steps Into Home: 3 Prior Prior Level of Function SCALE: Activities may be completed with or without assistive devices. 5-Jdawkzjyig-sovpdfe completes the activity by him/herself with no assistance from a helper. 5-Set-up or Clean-up Assistance-helper sets up or cleans up; patient completes activity. Brenton assists only prior to or following the activity. 4-Supervision or Touching Assistance-helper provides verbal cues and/or touching/steadying and/or contact guard assistance as patient completes activity. Assistance may be provided throughout the activity or intermittently. 3-Partial/Moderate Assistance-helper does LESS THAN HALF the effort. Brenton lifts, holds or supports trunk or limbs, but provides less than half the effort. 2-Substantial/Maximal Assistance-helper does MORE THAN HALF the effort. Brenton lifts or holds trunk or limbs and provides more than half the effort. 5-Alnyjsqor-ppyavo does ALL the effort. Patient does none of the effort to complete the activity. Or, the assistance of 2 or more helpers is required for the patient to complete the activity. If activity was not attempted, code reason: 7-Patient Refused. 9-Not Applicable-not attempted and the patient did not perform the activity before the current illness, exacerbation or injury. 10-Not Attempted due to Environmental Limitations-(lack of equipment, weather restraints, etc.). 88-Not Attempted due to Medical Conditions or Safety Concerns. Bed Mobility: 6 Transfers (B,C,W/C): 6 Gait: 6 Stairs: 6 Indoor Mobility (Ambulation): Independent Stairs: Independent Prior Device Use: Cane PT Evaluation-Current Subjective Patient lying in bed upon PT arrival, agreeable to treatment. Patient reports 0/10 pain currently. Objective Patient Orientation: Person, Place, Time, Situation Attachments: IV ROM/Strength ROM Lower Extremities Left ankle limited to neutral DF and 25 PF, knee lacks 10 degrees from TKE. All other joints WFLs bilaterally Strength Lower Extremities 5/5 grossly, however left ankle strength N/A due to wound and wrapping. 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 Ambulates for forward trunk posture and demonstrates antalgic gait pattern on left LE. He is unable to achieve full TKE in the left knee during stance phase and unable to obtain neutral DF during ankle rollover portion of stance phase. Balance Sitting Static: Normal Sitting Dynamic: Normal Standing Static: Good Standing Dynamic: Fair Assessment/Needs Patient tolerate treatment well. 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 Ambulates for forward trunk posture and demonstrates antalgic gait pattern on left LE. He is unable to achieve full TKE in the left knee during stance phase and unable to obtain neutral DF during ankle rollover portion of stance phase. Patient will benefit from FWW for home use for safety and increased balance due to deficits in left LE. Patient in bed post treatment with all needs met, nurse notified, call light in hand. Rehab Potential: Fair PT Industrial Locomotive Operator Goals Industrial Locomotive Operator Goals PT Industrial Locomotive Operator Goals Time Frame: Jun 21, 2022 Roll Left & Right (QC): 6 Sit to Lying (QC): 6 Lying-Sitting on Side/Bed(QC): 6 Sit to Stand (QC): 6 Chair/Lln-hy-Wural Xfer(QC): 6 Toilet Transfer (QC): 6 Car Transfer (QC): 6 Does the Patient Walk: Yes Walk 10 feet (QC): 6 Walk 50ft with 2 Turns (QC): 6 Walk 150 ft (QC): 6 1 Step (curb) (QC): 4 4 Steps (QC): 4 PT Plan Problem List Problem List: Activity Tolerance, Functional Strength, Safety, Balance, Gait, Transfer, Bed Mobility, ROM Treatment/Plan Treatment Plan: Continue Plan of Care Treatment Plan: Bed Mobility, Education, Functional Activity Diaz, Functional Strength, Group Therapy, Gait, Safety, Therapeutic Exercise, Transfers Treatment Duration: Jul 08, 2022 Frequency: 6 times per week Estimated Hrs Per Day: .25 hour per day Patient and/or Family Agrees t: Yes Safety Risks/Education Patient Education: Gait Training, Transfer Techniques, Safety Issues Teaching Recipient: Patient Teaching Methods: Demonstration, Discussion Response to Teaching: Verbalize Understanding, Return Demonstration Time/GCodes Time In: 846 Time Out: 910 Total Billed Treatment Time: 24 Total Billed Treatment Visit, Annalise FINN JOHN A PT Jun 17, 2022 09:23
--- NOTE | 2022-06-17 10:48 | Tele-ICU Progress Note ---
Subjective Date Seen by a Provider: Jun 17, 2022 Time Seen by a Provider: 10:48 Subjective/Events-last exam (Tele-ICU Physician , Progress Note ) Available chart/ vitals / labs / Images reviewed Video assessment done using teleICU camera, rest of exam as per RN Discussed with RN Events overnight : Afebrile hemodynamically stable Respiratory - I/O = Drips: Pressors- no A/P Hypotension = ? incidental OD hypertensive meds today ( took downle dose norvask by mistake ) vs other etiology - less likely PE with no hypoxia , at risk for PE with recent extensive DVT ( on AC with xarelto , last dose - ? infection with wounds - RN to contact wound center , consider ABX - less likely cardiac in etiology , ECHO 05/29/22 Left leg ulcers - as per wound care - being followed in wound center- OFF abx Recent DVT on left leg 04/2022 - on xarelto , compliant as per report , but taking it in AM with milk only ( absorbtion can be unadequate - TO RESUME ON D/C ROSY - improved with hydration Anemia - delutional h/o COPD - stable Plans in collaboration with bedside consultants and IM MDs. Discussed with RN to reach out if any questions or concerns A total of 10 minutes of critical care time was devoted to this patient today, required to treat and/or prevent further deterioration of critical care condition ( as above Sepsis Event Evaluation Height, Weight, BMI Height: 5'7.00" Weight: 190lbs. 0.0oz. 86.994791mx; 25.88 BMI Method: Focused Exam Lactate Level 06/16/22 12:43: Lactic Acid Level 1.14 Exam Exam Patient acknowledged, consented, and participated in this virtual visit which was conducted using real time audio/video Vital Signs Date Time Temp Pulse Resp B/P (MAP) Pulse Ox O2 Delivery O2 Flow Rate FiO2 06/17/22 10:11 94 Room Air 1.00 06/17/22 09:00 86 16 121/85 91 Nasal Cannula 2.00 06/17/22 08:00 95 Nasal Cannula 2.00 06/17/22 08:00 64 12 120/92 93 Nasal Cannula 2.00 06/17/22 07:51 36.6 06/17/22 07:00 67 06/17/22 07:00 93 22 118/79 93 Nasal Cannula 2.00 06/17/22 06:49 94 Nasal Cannula 1.00 06/17/22 06:00 92 19 121/90 98 Nasal Cannula 2.00 06/17/22 05:00 69 20 114/80 94 Nasal Cannula 2.00 06/17/22 04:45 68 06/17/22 04:00 67 12 115/82 98 Nasal Cannula 2.00 06/17/22 03:30 36.9 Nasal Cannula 2.00 06/17/22 03:30 93 Nasal Cannula 2.00 06/17/22 03:00 80 12 117/79 97 Nasal Cannula 2.00 06/17/22 02:39 Nasal Cannula 2.00 06/17/22 02:00 68 16 106/77 96 Nasal Cannula 2.00 06/17/22 01:00 80 06/17/22 01:00 71 15 117/77 98 Nasal Cannula 2.00 06/17/22 00:45 87 Nasal Cannula 2.00 06/17/22 00:00 92 22 104/67 95 Room Air 06/16/22 23:23 37.0 Room Air 06/16/22 23:19 93 Room Air 06/16/22 23:00 86 17 120/75 95 Room Air 06/16/22 22:30 Room Air 06/16/22 22:00 90 21 117/81 95 Room Air 06/16/22 21:05 32 93 21 06/16/22 21:00 85 18 134/76 94 Room Air 06/16/22 20:00 93 Room Air 06/16/22 20:00 79 12 116/80 94 Room Air 06/16/22 20:00 37.0 Room Air 06/16/22 19:00 70 06/16/22 19:00 75 15 121/75 95 Room Air 06/16/22 18:00 84 32 114/58 93 Room Air 06/16/22 17:00 69 11 110/50 91 Room Air 06/16/22 16:00 75 18 113/76 91 Room Air 06/16/22 15:00 93 Room Air 06/16/22 14:57 36.0 64 12 104/72 92 Room Air 06/16/22 14:54 68 06/16/22 14:41 36.6 76 16 116/72 98 Room Air 06/16/22 13:10 74 84/52 I & O 06/17/22 07:00 Intake Total 6360 ml Output Total 2750 ml Balance 3610 ml Height & Weight Height: 5'7.00" Weight: 190lbs. 0.0oz. 86.665643fq; 25.88 BMI Method: General Appearance: No Apparent Distress, WD/WN HEENT: PERRL/EOMI, Pharynx Normal Neck: Normal Inspection, Supple Respiratory: Lungs Clear, Normal Breath Sounds, No Respiratory Distress Cardiovascular: Regular Rate, Rhythm, No Edema, No Murmur Capillary Refill: Less Than 3 Seconds Extremity: Normal Inspection, No Pedal Edema Neurologic/Psychiatric: Alert, No Motor/Sensory Deficits, Normal Mood/Affect Skin: Normal Color, Warm/Dry Results Lab Laboratory Tests 06/16/22 10:44 06/16/22 21:51 06/17/22 03:30 Assessment/Plan Assessment/Plan 1 CARMEN OCASIO MD Jun 17, 2022 10:48
--- NOTE | 2022-06-17 18:34 | Discharge Summary ---
Discharge Summary Hospital Course Problems/Dx: (1) Hypovolemic shock Status: Acute (2) ROSY (acute kidney injury) Status: Acute (3) HTN (hypertension) Status: Chronic (4) DVT (deep venous thrombosis) Status: Chronic (5) HLD (hyperlipidemia) Status: Chronic (6) BPH (benign prostatic hyperplasia) Status: Chronic (7) Arterial insufficiency with ischemic ulcer Status: Chronic (8) Substance use disorder Status: Acute Hospital Course Date of Admission: Jun 16, 2022 at 13:29 Admission Diagnosis : Hypovolemic shock Family Physician/Provider: Marion Mack Physician Date of Discharge: 06/17/22 Discharge Diagnosis: Hypovolemic shock, ROSY, methamphetamine intoxication Hospital Course: Bennie Wing is a 56 year old male with PMH HTN, DVT, HLD, BPH, arterial insuff iciency, substance use disorder, who was admitted after having a syncopal episode in the wound care clinic waiting area. He was found to be hypotensive. He was started on IV fluids and remained hypotensive. He required Levophed temporarily. He was very dehydrated. His creatinine improved and normalized with fluid resuscitation. An infectious workup was negative. He was found to be positive for amphetamines/methamphetamines. He admitted to using meth about once a week. He was encouraged to abstain from further use. He was discharged home in stable condition. Labs and Pending Lab Test: Laboratory Tests 06/16/22 20:59: Urine Color YELLOW, Urine Clarity CLEAR, Urine pH 6.0, Urine Specific [place] 1.015L, Urine Protein NEGATIVE, Urine Glucose (UA) NEGATIVE, Urine Ketones NEGATIVE, Urine Nitrite NEGATIVE, Urine Bilirubin NEGATIVE, Urine Urobilinogen 0.2, Urine Leukocyte Esterase NEGATIVE, Urine RBC (Auto) NEGATIVE, Urine RBC RARE, Urine WBC NONE, Urine Squamous Epithelial Cells NONE, Urine Crystals NONE, Urine Bacteria TRACE, Urine Casts NONE, Urine Mucus NEGATIVE, Urine Culture Ind icated NO, Urine Opiates Screen NEGATIVE, Urine Oxycodone Screen NEGATIVE, Urine Methadone Screen NEGATIVE, Urine Propoxyphene Screen NEGATIVE, Urine Barbiturates Screen NEGATIVE, Ur Tricyclic Antidepressants Screen NEGATIVE, Urine Phencyclidine Screen NEGATIVE, Urine Amphetamines Screen POSITIVEH, Urine Methamphetamines Screen POSITIVEH, Urine Benzodiazepines Screen NEGATIVE, Urine Cocaine Screen NEGATIVE, Urine Cannabinoids Screen NEGATIVE 06/16/22 21:51: White Blood Count 7.9, Red Blood Count 3.81L, Hemoglobin 11.5L, Hematocrit 34L, Mean Corpuscular Volume 88, Mean Corpuscular Hemoglobin 30, Mean Corpuscular Hemoglobin Concent 34, Red Cell Distribution Width 13.0, Platelet Count 256, Mean Platelet Volume 8.9L, Immature Granulocyte % (Auto) 0, Neutrophils (%) (Auto) 67, Lymphocytes (%) (Auto) 18, Monocytes (%) (Auto) 9, Eosinophils (%) (Auto) 6, Basophils (%) (Auto) 0, Neutrophils # (Auto) 5.3, Lymphocytes # (Auto) 1.4, Monocytes # (Auto) 0.7, Eosinophils # (Auto) 0.5H, Basophils # (Auto) 0.0, Immature Granulocyte # (Auto) 0.0, Troponin I < 0.028, Total Cortisol [Pending] 06/17/22 03:30: White Blood Count 5.2, Red Blood Count 3.47L, Hemoglobin 10.6L, Hematocrit 31L, Mean Corpuscular Volume 89, Mean Corpuscular Hemoglobin 31, Mean Corpuscular Hemoglobin Concent 34, Red Cell Distribution Width 13.2, Platelet Count 197, Mean Platelet Volume 9.0, Sodium Level 138, Potassium Level 4.4, Chloride Level 110H, Carbon Dioxide Level 19L, Anion Gap 9, Blood Urea Nitrogen 33H, Creatinine 1.09, Estimat Glomerular Filtration Rate 80, BUN/Creatinine Ratio 30, Glucose Level 79, Calcium Level 8.2L, Magnesium Level 1.9, Triglycerides Level 115, Cholesterol Level 147, LDL Cholesterol Direct 99, VLDL Cholesterol 23, HDL Cholesterol 32L Microbiology 06/16/22 Blood Culture - Preliminary, Resulted No growth 06/16/22 MRSA Screen - Final, Complete MRSA not isolated Home Meds Active Xarelto Tablet (Rivaroxaban) 10 Mg Tablet 10 Mg PO DAILY 30 Days Terazosin HCl 5 Mg Capsule 5 Mg PO HS 30 Days Lisinopril 40 Mg Tablet 40 Mg PO DAILY 30 Days Atorvastatin Calcium 40 Mg Tablet 20 Mg PO DAILY 30 Days Amlodipine Besylate 10 Mg Tablet 5 Mg PO DAILY 30 Days Assessment/Pt Instructions See instructions Discharge Planning: >30 minutes discharge planning Discharge Instructions Discharge Diet: No Restrictions Activity as Tolerated: Yes Consultations TeleICU Discharge Physical Examination Vital Signs Vital Signs Date Time Temp Pulse Resp B/P (MAP) Pulse Ox O2 Delivery O2 Flow Rate FiO2 06/17/22 11:23 06/17/22 10:11 94 Room Air 1.00 06/17/22 09:00 86 16 06/17/22 07:51 36.6 06/16/22 21:05 21 General Appearance: No Apparent Distress, WD/WN Respiratory: Lungs Clear, No Respiratory Distress Cardiovascular: Regular Rate, Rhythm, No Murmur Gastrointestinal: Normal Bowel Sounds, Non Tender, Soft Extremity: Normal Inspection, No Pedal Edema Skin: Normal Color, Warm/Dry Neurologic/Psychiatric: Alert, Normal Mood/Affect Allergies: Coded Allergies: ciprofloxacin (Verified Allergy, Mild, 12/23/11) ciprofloxacin HCl (Verified Allergy, Mild, 12/23/11) Discharge Summary Date of Admission Jun 16, 2022 at 13:29 Date of Discharge Jun 17, 2022 at 11:20 Discharge Date: Jun 17, 2022 Discharge Time: 11:20 Admission Diagnosis Hypovolemic shock Consults/Procedures Consulations TeleICU Discharge Diagnosis Hypovolemic shock Acute kidney injury Substance use disorder (1) Hypovolemic shock Status: Acute (2) ROSY (acute kidney injury) Status: Acute (3) HTN (hypertension) Status: Chronic (4) DVT (deep venous thrombosis) Status: Chronic (5) HLD (hyperlipidemia) Status: Chronic (6) BPH (benign prostatic hyperplasia) Status: Chronic (7) Arterial insufficiency with ischemic ulcer Status: Chronic (8) Substance use disorder Status: Acute Clinical Quality Measures AMI/AHF: ASA po Prior to arrival: BHARGAV Carrillo MD Jun 17, 2022 18:34
== END 2022-06-17 11:20 | disposition home or self-care (01) | DRG 682 ==
LOC: EDUNIT# 10:31 → ER 10:32 → ICU 13:29
PROVIDERS: ADMIT Internal Medicine; ATTEND Internal Medicine
PROC: 02HV33Z Insertion of Infusion Device into Superior Vena Cava, Percutaneous Approach (ICD-10-PCS; principal; 2022-06-16)
DX: N17.9 Acute kidney failure, unspecified (principal); R57.1 Hypovolemic shock; L97.929 Non-pressure chronic ulcer of unspecified part of left lower leg with unspecified severity; E86.0 Dehydration; F15.929 Other stimulant use, unspecified with intoxication, unspecified; E11.51 Type 2 diabetes mellitus with diabetic peripheral angiopathy without gangrene; Z79.4 Long term (current) use of insulin; I10 Essential (primary) hypertension; J44.9 Chronic obstructive pulmonary disease, unspecified; F17.210 Nicotine dependence, cigarettes, uncomplicated; E78.5 Hyperlipidemia, unspecified; N40.1 Benign prostatic hyperplasia with lower urinary tract symptoms; Z86.718 Personal history of other venous thrombosis and embolism; Z79.01 Long term (current) use of anticoagulants; Z88.1 Allergy status to other antibiotic agents
CPT/HCPCS: 36415; 71045; 80048; 80053; 80061; 80306; 81000; 82533; 83605; 83735; 83874; 84145; 84484; 85025; 85027; 85610; 85730; 87040; 87081; 93005; 93041; 94640; 94664

== ENCOUNTER → 2022-06-16 | Outpatient (CLI) | payer OTHER ==
[~2022-06-16] MED LIST changes: +AMLO-251 PO; +ATOR40TA70 PO; +LISI40TA9 PO; +RIVA10T PO; +TERA5CAP10 PO
== END ==
LOC: WOUNDCARE 09:53
PROVIDERS: ATTEND Family Medicine
DX: S81.802A Unspecified open wound, left lower leg, initial encounter (principal); L97.229 Non-pressure chronic ulcer of left calf with unspecified severity; J44.9 Chronic obstructive pulmonary disease, unspecified; I10 Essential (primary) hypertension
CPT/HCPCS: 29581

== ENCOUNTER → 2022-06-19 | Outpatient (CLI) | payer OTHER ==
[~2022-06-19] MED LIST changes: +AMLO-251 PO; +ATOR40TA70 PO; +LISI40TA9 PO; +RIVA10T PO; +TERA5CAP10 PO
== END ==
LOC: WOUNDCARE 14:52
PROVIDERS: ATTEND Family Medicine
DX: L97.222 Non-pressure chronic ulcer of left calf with fat layer exposed (principal); I70.242 Atherosclerosis of native arteries of left leg with ulceration of calf; I87.332 Chronic venous hypertension (idiopathic) with ulcer and inflammation of left lower extremity; I89.0 Lymphedema, not elsewhere classified; E11.622 Type 2 diabetes mellitus with other skin ulcer; E55.9 Vitamin D deficiency, unspecified; F17.219 Nicotine dependence, cigarettes, with unspecified nicotine-induced disorders; I82.409 Acute embolism and thrombosis of unspecified deep veins of unspecified lower extremity; R77.8 Other specified abnormalities of plasma proteins; F15.10 Other stimulant abuse, uncomplicated; E11.52 Type 2 diabetes mellitus with diabetic peripheral angiopathy with gangrene; I96 Gangrene, not elsewhere classified
CPT/HCPCS: 11042; 11045

== ENCOUNTER → 2022-06-29 | Outpatient (CLI) | payer OTHER | LOC: WOUNDCARE 10:52 | PROVIDERS: ATTEND Family Medicine | DX: L97.222 Non-pressure chronic ulcer of left calf with fat layer exposed (principal); I70.242 Atherosclerosis of native arteries of left leg with ulceration of calf; I87.332 Chronic venous hypertension (idiopathic) with ulcer and inflammation of left lower extremity; I89.0 Lymphedema, not elsewhere classified; E11.622 Type 2 diabetes mellitus with other skin ulcer; E55.9 Vitamin D deficiency, unspecified; F17.219 Nicotine dependence, cigarettes, with unspecified nicotine-induced disorders; I82.409 Acute embolism and thrombosis of unspecified deep veins of unspecified lower extremity; R77.8 Other specified abnormalities of plasma proteins; F15.10 Other stimulant abuse, uncomplicated; I96 Gangrene, not elsewhere classified | CPT/HCPCS: 11042; 11045 ==

== ENCOUNTER → 2022-07-03 | Outpatient (CLI) | payer OTHER | LOC: WOUNDCARE 15:03 | PROVIDERS: ATTEND Family Medicine | DX: L97.222 Non-pressure chronic ulcer of left calf with fat layer exposed (principal); I70.242 Atherosclerosis of native arteries of left leg with ulceration of calf; I87.332 Chronic venous hypertension (idiopathic) with ulcer and inflammation of left lower extremity; I89.0 Lymphedema, not elsewhere classified; E11.622 Type 2 diabetes mellitus with other skin ulcer; E55.9 Vitamin D deficiency, unspecified; I82.402 Acute embolism and thrombosis of unspecified deep veins of left lower extremity; R77.8 Other specified abnormalities of plasma proteins; F15.10 Other stimulant abuse, uncomplicated; F17.218 Nicotine dependence, cigarettes, with other nicotine-induced disorders; E11.52 Type 2 diabetes mellitus with diabetic peripheral angiopathy with gangrene | CPT/HCPCS: 11042; 11045 ==

== ENCOUNTER → 2022-07-06 | Outpatient (CLI) | payer OTHER ==
[2022-07-06 15:41] LABS: BASOPHILS % (AUTO) 1 % (0-10); EOSINOPHILS # (AUTO) 0.2 10^3/uL (0.0-0.3); EOSINOPHILS % (AUTO) 4 % (0-10); HEMATOCRIT 36 % (40-54); HEMOGLOBIN 12.2 g/dL (13.3-17.7); LYMPHOCYTES # (AUTO) 1.2 X 10^3 (1.0-4.0); LYMPHOCYTES % (AUTO) 22 % (12-44); MEAN CORPUSCULAR HEMOGLOBIN 30 pg (25-34); MEAN CORPUSCULAR HGB CONC 34 g/dL (32-36); MEAN CORPUSCULAR VOLUME 90 fL (80-99); MEAN PLATELET VOLUME 8.4 fL (9.0-12.2); MONOCYTES # (AUTO) 0.6 X 10^3 (0.0-1.0); MONOCYTES % (AUTO) 11 % (0-12); NEUTROPHILS # (AUTO) 3.6 X 10^3 (1.8-7.8); NEUTROPHILS % (AUTO) 63 % (42-75); PLATELET COUNT 313 10^3/uL (130-400); WHITE BLOOD COUNT 5.7 10^3/uL (4.3-11.0)
[2022-07-06 15:48] LABS: ALBUMIN 4.4 GM/DL (3.2-4.5); POTASSIUM 5.1 MMOL/L (3.6-5.0)
[2022-07-06 15:50] LABS: TOTAL PROTEIN 8.1 GM/DL (6.4-8.2)
[2022-07-06 15:52] LABS: BILIRUBIN,TOTAL 0.9 MG/DL (0.1-1.0)
[2022-07-06 15:54] LABS: CREATININE SERUM 1.72 MG/DL (0.60-1.30)
[2022-07-06 16:01] LABS: ERYTHROCYTE SEDIMENTATION RATE 41 MM/HR (0-30)
== END ==
LOC: WOUNDCARE 14:57
PROVIDERS: ATTEND Family Medicine
DX: L97.228 Non-pressure chronic ulcer of left calf with other specified severity (principal)
CPT/HCPCS: 29581; 36415; 80053; 83036; 85025; 85652; 86141

== ENCOUNTER → 2022-07-10 | Outpatient (CLI) | payer OTHER | LOC: WOUNDCARE 13:52 | PROVIDERS: ATTEND Family Medicine | DX: L97.222 Non-pressure chronic ulcer of left calf with fat layer exposed (principal); I70.242 Atherosclerosis of native arteries of left leg with ulceration of calf; I87.332 Chronic venous hypertension (idiopathic) with ulcer and inflammation of left lower extremity; I89.0 Lymphedema, not elsewhere classified; E11.622 Type 2 diabetes mellitus with other skin ulcer; F17.219 Nicotine dependence, cigarettes, with unspecified nicotine-induced disorders; E55.9 Vitamin D deficiency, unspecified; I82.4Y2 Acute embolism and thrombosis of unspecified deep veins of left proximal lower extremity; R77.8 Other specified abnormalities of plasma proteins; F15.10 Other stimulant abuse, uncomplicated; E11.52 Type 2 diabetes mellitus with diabetic peripheral angiopathy with gangrene; I96 Gangrene, not elsewhere classified | CPT/HCPCS: 11042; 11045; 87070; 87077; 87205 ==

== ENCOUNTER → 2022-07-13 | Outpatient (CLI) | payer OTHER | LOC: WOUNDCARE 15:00 | PROVIDERS: ATTEND Family Medicine | DX: S81.832A Puncture wound without foreign body, left lower leg, initial encounter (principal); L97.929 Non-pressure chronic ulcer of unspecified part of left lower leg with unspecified severity; J44.9 Chronic obstructive pulmonary disease, unspecified | CPT/HCPCS: 29581 ==

== ENCOUNTER → 2022-07-17 | Outpatient (CLI) | payer OTHER | LOC: WOUNDCARE 15:03 | PROVIDERS: ATTEND Family Medicine | DX: I70.242 Atherosclerosis of native arteries of left leg with ulceration of calf (principal); L97.222 Non-pressure chronic ulcer of left calf with fat layer exposed; I87.332 Chronic venous hypertension (idiopathic) with ulcer and inflammation of left lower extremity; I89.0 Lymphedema, not elsewhere classified; E11.622 Type 2 diabetes mellitus with other skin ulcer; E11.52 Type 2 diabetes mellitus with diabetic peripheral angiopathy with gangrene; I96 Gangrene, not elsewhere classified; E55.9 Vitamin D deficiency, unspecified; I82.402 Acute embolism and thrombosis of unspecified deep veins of left lower extremity; F15.10 Other stimulant abuse, uncomplicated; F17.219 Nicotine dependence, cigarettes, with unspecified nicotine-induced disorders; R77.8 Other specified abnormalities of plasma proteins | CPT/HCPCS: 11042; 11045; 97607 ==

== ENCOUNTER → 2022-07-20 | Outpatient (CLI) | payer OTHER | LOC: WOUNDCARE 14:35 | PROVIDERS: ATTEND Family Medicine | DX: L97.229 Non-pressure chronic ulcer of left calf with unspecified severity (principal) | CPT/HCPCS: 29581; 97607 ==

== ENCOUNTER → 2022-07-24 | Outpatient (CLI) | payer OTHER | LOC: WOUNDCARE 14:57 | PROVIDERS: ATTEND Family Medicine | DX: L97.222 Non-pressure chronic ulcer of left calf with fat layer exposed (principal); I70.242 Atherosclerosis of native arteries of left leg with ulceration of calf; I87.332 Chronic venous hypertension (idiopathic) with ulcer and inflammation of left lower extremity; I89.0 Lymphedema, not elsewhere classified; E11.622 Type 2 diabetes mellitus with other skin ulcer; E55.9 Vitamin D deficiency, unspecified; I82.402 Acute embolism and thrombosis of unspecified deep veins of left lower extremity; R77.8 Other specified abnormalities of plasma proteins; F15.10 Other stimulant abuse, uncomplicated; F17.219 Nicotine dependence, cigarettes, with unspecified nicotine-induced disorders; I96 Gangrene, not elsewhere classified | CPT/HCPCS: 11042; 11045; 97607 ==

== ENCOUNTER → 2022-07-27 | Outpatient (CLI) | payer OTHER | LOC: WOUNDCARE 09:58 | PROVIDERS: ATTEND Family Medicine | DX: S81.802A Unspecified open wound, left lower leg, initial encounter (principal); J44.9 Chronic obstructive pulmonary disease, unspecified | CPT/HCPCS: 29581; 97607 ==

== ENCOUNTER → 2022-07-31 | Outpatient (CLI) | payer OTHER | LOC: WOUNDCARE 15:01 | PROVIDERS: ATTEND Family Medicine | DX: I70.242 Atherosclerosis of native arteries of left leg with ulceration of calf (principal); L97.222 Non-pressure chronic ulcer of left calf with fat layer exposed; I87.332 Chronic venous hypertension (idiopathic) with ulcer and inflammation of left lower extremity; I89.0 Lymphedema, not elsewhere classified; E11.622 Type 2 diabetes mellitus with other skin ulcer; E11.52 Type 2 diabetes mellitus with diabetic peripheral angiopathy with gangrene; I96 Gangrene, not elsewhere classified; E55.9 Vitamin D deficiency, unspecified; I82.402 Acute embolism and thrombosis of unspecified deep veins of left lower extremity; F15.10 Other stimulant abuse, uncomplicated; F17.219 Nicotine dependence, cigarettes, with unspecified nicotine-induced disorders; R77.8 Other specified abnormalities of plasma proteins | CPT/HCPCS: 11042; 11045 ==

== ENCOUNTER → 2022-08-04 | Outpatient (CLI) | payer OTHER | LOC: WOUNDCARE 10:31 | PROVIDERS: ATTEND Family Medicine | DX: S81.802A Unspecified open wound, left lower leg, initial encounter (principal); J44.9 Chronic obstructive pulmonary disease, unspecified | CPT/HCPCS: 29581 ==

== ENCOUNTER → 2022-08-07 | Outpatient (CLI) | payer OTHER | LOC: WOUNDCARE 15:00 | PROVIDERS: ATTEND Family Medicine | DX: L97.222 Non-pressure chronic ulcer of left calf with fat layer exposed (principal); I70.242 Atherosclerosis of native arteries of left leg with ulceration of calf; I87.332 Chronic venous hypertension (idiopathic) with ulcer and inflammation of left lower extremity; I89.0 Lymphedema, not elsewhere classified; E11.622 Type 2 diabetes mellitus with other skin ulcer; F17.219 Nicotine dependence, cigarettes, with unspecified nicotine-induced disorders; E55.9 Vitamin D deficiency, unspecified; I82.409 Acute embolism and thrombosis of unspecified deep veins of unspecified lower extremity; R77.8 Other specified abnormalities of plasma proteins; F15.10 Other stimulant abuse, uncomplicated | CPT/HCPCS: 11042; 11045; 29581 ==

== ENCOUNTER → 2022-08-14 | Outpatient (CLI) | payer OTHER | LOC: WOUNDCARE 15:06 | PROVIDERS: ATTEND Family Medicine | DX: L97.222 Non-pressure chronic ulcer of left calf with fat layer exposed (principal); I70.242 Atherosclerosis of native arteries of left leg with ulceration of calf; I87.332 Chronic venous hypertension (idiopathic) with ulcer and inflammation of left lower extremity; I89.0 Lymphedema, not elsewhere classified; E11.622 Type 2 diabetes mellitus with other skin ulcer; E55.9 Vitamin D deficiency, unspecified; R77.8 Other specified abnormalities of plasma proteins; F15.10 Other stimulant abuse, uncomplicated; E11.52 Type 2 diabetes mellitus with diabetic peripheral angiopathy with gangrene | CPT/HCPCS: 11042; 11045; 87070; 87205 ==

== ENCOUNTER 2022-08-17 08:09 | Outpatient (RCR) | payer OTHER | END 2022-08-21 | disposition home or self-care (01) | LOC: WOUNDCARE 08:09 | PROVIDERS: ATTEND Family Medicine | DX: I70.242 Atherosclerosis of native arteries of left leg with ulceration of calf (principal); L97.222 Non-pressure chronic ulcer of left calf with fat layer exposed; I87.332 Chronic venous hypertension (idiopathic) with ulcer and inflammation of left lower extremity; I89.0 Lymphedema, not elsewhere classified; E11.622 Type 2 diabetes mellitus with other skin ulcer; E55.9 Vitamin D deficiency, unspecified; I82.402 Acute embolism and thrombosis of unspecified deep veins of left lower extremity; F15.10 Other stimulant abuse, uncomplicated; F17.219 Nicotine dependence, cigarettes, with unspecified nicotine-induced disorders; R77.8 Other specified abnormalities of plasma proteins | CPT/HCPCS: 82947; 99183 ==

== ENCOUNTER → 2022-08-21 | Outpatient (CLI) | payer OTHER | LOC: WOUNDCARE 11:45 | PROVIDERS: ATTEND Family Medicine | DX: L97.222 Non-pressure chronic ulcer of left calf with fat layer exposed (principal); I70.242 Atherosclerosis of native arteries of left leg with ulceration of calf; I87.332 Chronic venous hypertension (idiopathic) with ulcer and inflammation of left lower extremity; I89.0 Lymphedema, not elsewhere classified; E11.622 Type 2 diabetes mellitus with other skin ulcer; E55.9 Vitamin D deficiency, unspecified; R77.8 Other specified abnormalities of plasma proteins; F15.10 Other stimulant abuse, uncomplicated; H60.509 Unspecified acute noninfective otitis externa, unspecified ear; H92.03 Otalgia, bilateral; B35.3 Tinea pedis; E11.52 Type 2 diabetes mellitus with diabetic peripheral angiopathy with gangrene; I96 Gangrene, not elsewhere classified | CPT/HCPCS: 11042 ==

== ENCOUNTER → 2022-08-28 | Outpatient (CLI) | payer OTHER | LOC: WOUNDCARE 14:05 | PROVIDERS: ATTEND Family Medicine | DX: I70.242 Atherosclerosis of native arteries of left leg with ulceration of calf (principal); I96 Gangrene, not elsewhere classified; L97.222 Non-pressure chronic ulcer of left calf with fat layer exposed; I87.332 Chronic venous hypertension (idiopathic) with ulcer and inflammation of left lower extremity; I89.0 Lymphedema, not elsewhere classified; E11.622 Type 2 diabetes mellitus with other skin ulcer; E11.52 Type 2 diabetes mellitus with diabetic peripheral angiopathy with gangrene; E55.9 Vitamin D deficiency, unspecified; F15.10 Other stimulant abuse, uncomplicated; H60.503 Unspecified acute noninfective otitis externa, bilateral; B35.3 Tinea pedis; R77.8 Other specified abnormalities of plasma proteins | CPT/HCPCS: 11042 ==

== ENCOUNTER → 2022-09-04 | Outpatient (CLI) | payer OTHER | LOC: WOUNDCARE 10:23 | PROVIDERS: ATTEND Family Medicine | DX: I96 Gangrene, not elsewhere classified (principal); L97.222 Non-pressure chronic ulcer of left calf with fat layer exposed; I70.242 Atherosclerosis of native arteries of left leg with ulceration of calf; I87.332 Chronic venous hypertension (idiopathic) with ulcer and inflammation of left lower extremity; I89.0 Lymphedema, not elsewhere classified; E55.9 Vitamin D deficiency, unspecified; R77.8 Other specified abnormalities of plasma proteins; F15.10 Other stimulant abuse, uncomplicated; T70.0XXA Otitic barotrauma, initial encounter | CPT/HCPCS: 11042 ==

== ENCOUNTER → 2022-09-11 | Outpatient (CLI) | payer OTHER | LOC: WOUNDCARE 08:03 | PROVIDERS: ATTEND Family Medicine | DX: L97.222 Non-pressure chronic ulcer of left calf with fat layer exposed (principal); I70.242 Atherosclerosis of native arteries of left leg with ulceration of calf; I87.332 Chronic venous hypertension (idiopathic) with ulcer and inflammation of left lower extremity; I89.0 Lymphedema, not elsewhere classified; E55.9 Vitamin D deficiency, unspecified; R77.8 Other specified abnormalities of plasma proteins; F15.10 Other stimulant abuse, uncomplicated; T70.0XXA Otitic barotrauma, initial encounter; I96 Gangrene, not elsewhere classified | CPT/HCPCS: 11042 ==

== ENCOUNTER → 2022-09-19 | Outpatient (CLI) | payer OTHER | LOC: WOUNDCARE 11:45 | PROVIDERS: ATTEND Family Medicine | DX: L97.222 Non-pressure chronic ulcer of left calf with fat layer exposed (principal); I70.242 Atherosclerosis of native arteries of left leg with ulceration of calf; I87.332 Chronic venous hypertension (idiopathic) with ulcer and inflammation of left lower extremity; I89.0 Lymphedema, not elsewhere classified; E55.9 Vitamin D deficiency, unspecified; R77.8 Other specified abnormalities of plasma proteins; F15.10 Other stimulant abuse, uncomplicated; T70.0XXA Otitic barotrauma, initial encounter; I96 Gangrene, not elsewhere classified | CPT/HCPCS: 11042; 11045; 87070; 87077; 87186; 87205 ==

== ENCOUNTER → 2022-09-20 | Outpatient (RCR) | payer OTHER | END | disposition home or self-care (01) | LOC: WOUNDCARE 08-30 08:07 | PROVIDERS: ATTEND Family Medicine | DX: L97.222 Non-pressure chronic ulcer of left calf with fat layer exposed (principal); I87.332 Chronic venous hypertension (idiopathic) with ulcer and inflammation of left lower extremity; I70.242 Atherosclerosis of native arteries of left leg with ulceration of calf; I89.0 Lymphedema, not elsewhere classified; E11.622 Type 2 diabetes mellitus with other skin ulcer; E55.9 Vitamin D deficiency, unspecified; I82.402 Acute embolism and thrombosis of unspecified deep veins of left lower extremity; F15.10 Other stimulant abuse, uncomplicated; F17.219 Nicotine dependence, cigarettes, with unspecified nicotine-induced disorders; R77.8 Other specified abnormalities of plasma proteins | CPT/HCPCS: 82947; 99183 ==

== ENCOUNTER → 2022-09-25 | Outpatient (CLI) | payer OTHER | LOC: WOUNDCARE 08:03 | PROVIDERS: ATTEND Family Medicine | DX: I96 Gangrene, not elsewhere classified (principal); I70.242 Atherosclerosis of native arteries of left leg with ulceration of calf; L97.222 Non-pressure chronic ulcer of left calf with fat layer exposed; I87.332 Chronic venous hypertension (idiopathic) with ulcer and inflammation of left lower extremity; I89.0 Lymphedema, not elsewhere classified; E55.9 Vitamin D deficiency, unspecified; R77.8 Other specified abnormalities of plasma proteins; F15.10 Other stimulant abuse, uncomplicated; T70.0XXA Otitic barotrauma, initial encounter | CPT/HCPCS: 11042; 11045 ==

== ENCOUNTER 2022-10-04 08:20 | Outpatient (RCR) | payer OTHER | END 2022-10-21 | disposition home or self-care (01) | LOC: WOUNDCARE 08:20 | PROVIDERS: ATTEND Family Medicine | DX: I87.332 Chronic venous hypertension (idiopathic) with ulcer and inflammation of left lower extremity (principal); L97.222 Non-pressure chronic ulcer of left calf with fat layer exposed; I70.242 Atherosclerosis of native arteries of left leg with ulceration of calf; I89.0 Lymphedema, not elsewhere classified; E11.622 Type 2 diabetes mellitus with other skin ulcer; E55.9 Vitamin D deficiency, unspecified; I82.402 Acute embolism and thrombosis of unspecified deep veins of left lower extremity; R77.8 Other specified abnormalities of plasma proteins; F15.10 Other stimulant abuse, uncomplicated; F17.219 Nicotine dependence, cigarettes, with unspecified nicotine-induced disorders | CPT/HCPCS: 99183 ==

== ENCOUNTER → 2022-10-04 | Outpatient (CLI) | payer OTHER | LOC: WOUNDCARE 08:20 | PROVIDERS: ATTEND Family Medicine | DX: L97.222 Non-pressure chronic ulcer of left calf with fat layer exposed (principal); I70.242 Atherosclerosis of native arteries of left leg with ulceration of calf; I87.332 Chronic venous hypertension (idiopathic) with ulcer and inflammation of left lower extremity; I89.0 Lymphedema, not elsewhere classified; E55.9 Vitamin D deficiency, unspecified; R77.8 Other specified abnormalities of plasma proteins; F15.10 Other stimulant abuse, uncomplicated; T70.0XXA Otitic barotrauma, initial encounter; I96 Gangrene, not elsewhere classified | CPT/HCPCS: 11042 ==

== ENCOUNTER → 2022-10-17 | Outpatient (CLI) | payer OTHER | LOC: WOUNDCARE 14:33 | PROVIDERS: ATTEND Family Medicine | DX: L97.222 Non-pressure chronic ulcer of left calf with fat layer exposed (principal); I70.242 Atherosclerosis of native arteries of left leg with ulceration of calf; I87.332 Chronic venous hypertension (idiopathic) with ulcer and inflammation of left lower extremity; E55.9 Vitamin D deficiency, unspecified; R77.8 Other specified abnormalities of plasma proteins; I96 Gangrene, not elsewhere classified | CPT/HCPCS: 11042 ==

== ENCOUNTER → 2022-10-24 | Outpatient (CLI) | payer OTHER | LOC: WOUNDCARE 14:10 | PROVIDERS: ATTEND Family Medicine | DX: L97.222 Non-pressure chronic ulcer of left calf with fat layer exposed (principal); I70.248 Atherosclerosis of native arteries of left leg with ulceration of other part of lower leg; I87.332 Chronic venous hypertension (idiopathic) with ulcer and inflammation of left lower extremity; I89.0 Lymphedema, not elsewhere classified; E55.9 Vitamin D deficiency, unspecified; R77.8 Other specified abnormalities of plasma proteins; I96 Gangrene, not elsewhere classified | CPT/HCPCS: 11042 ==

== ENCOUNTER → 2022-10-31 | Outpatient (CLI) | payer OTHER | LOC: WOUNDCARE 08:21 | PROVIDERS: ATTEND Family Medicine | DX: I70.242 Atherosclerosis of native arteries of left leg with ulceration of calf (principal); I96 Gangrene, not elsewhere classified; L97.222 Non-pressure chronic ulcer of left calf with fat layer exposed; I87.332 Chronic venous hypertension (idiopathic) with ulcer and inflammation of left lower extremity; I89.0 Lymphedema, not elsewhere classified; E55.9 Vitamin D deficiency, unspecified; R77.8 Other specified abnormalities of plasma proteins | CPT/HCPCS: 11042 ==

== ENCOUNTER → 2022-11-06 | Outpatient (CLI) | payer OTHER ==
[2022-11-06 13:23] LABS: BASOPHILS % (AUTO) 1 % (0-10); EOSINOPHILS # (AUTO) 0.2 10^3/uL (0.0-0.3); EOSINOPHILS % (AUTO) 4 % (0-10); HEMATOCRIT 40 % (40-54); HEMOGLOBIN 13.7 g/dL (13.3-17.7); LYMPHOCYTES # (AUTO) 1.2 10^3/uL (1.0-4.0); LYMPHOCYTES % (AUTO) 23 % (12-44); MEAN CORPUSCULAR HEMOGLOBIN 31 pg (25-34); MEAN CORPUSCULAR HGB CONC 34 g/dL (32-36); MEAN CORPUSCULAR VOLUME 91 fL (80-99); MEAN PLATELET VOLUME 8.8 fL (9.0-12.2); MONOCYTES # (AUTO) 0.6 10^3/uL (0.0-1.0); MONOCYTES % (AUTO) 11 % (0-12); NEUTROPHILS # (AUTO) 3.2 10^3/uL (1.8-7.8); NEUTROPHILS % (AUTO) 61 % (42-75); PLATELET COUNT 285 10^3/uL (130-400); WHITE BLOOD COUNT 5.3 10^3/uL (4.3-11.0)
[2022-11-06 13:43] LABS: ALANINE AMINOTRANSFERASE 19 U/L (0-55); ALBUMIN 4.6 GM/DL (3.2-4.5); ALKALINE PHOSPHATASE 103 U/L (40-136); BILIRUBIN,TOTAL 0.7 MG/DL (0.1-1.0); BUN/CREATININE RATIO 21; CALCIUM 10.4 MG/DL (8.5-10.1); CARBON DIOXIDE 25 MMOL/L (21-32); CHLORIDE 104 MMOL/L (98-107); CREATININE SERUM 1.27 MG/DL (0.60-1.30); GFR ESTIMATED 66; GLUCOSE 78 MG/DL (70-105); POTASSIUM 4.3 MMOL/L (3.6-5.0); SODIUM 137 MMOL/L (135-145); TOTAL PROTEIN 8.3 GM/DL (6.4-8.2)
== END ==
LOC: WOUNDCARE 12:32
PROVIDERS: ATTEND Family Medicine
DX: L97.222 Non-pressure chronic ulcer of left calf with fat layer exposed (principal); I70.242 Atherosclerosis of native arteries of left leg with ulceration of calf; I87.332 Chronic venous hypertension (idiopathic) with ulcer and inflammation of left lower extremity; I89.0 Lymphedema, not elsewhere classified; E55.9 Vitamin D deficiency, unspecified; R77.8 Other specified abnormalities of plasma proteins; B35.4 Tinea corporis; I96 Gangrene, not elsewhere classified
CPT/HCPCS: 11042; 36415; 80053; 85025; 87070; 87077; 87205

== ENCOUNTER → 2022-11-15 | Outpatient (CLI) | payer OTHER | LOC: WOUNDCARE 09:50 | PROVIDERS: ATTEND Family Medicine | DX: I96 Gangrene, not elsewhere classified (principal); L97.222 Non-pressure chronic ulcer of left calf with fat layer exposed; I70.242 Atherosclerosis of native arteries of left leg with ulceration of calf; I87.332 Chronic venous hypertension (idiopathic) with ulcer and inflammation of left lower extremity; I89.0 Lymphedema, not elsewhere classified; E55.9 Vitamin D deficiency, unspecified; R77.8 Other specified abnormalities of plasma proteins; A49.02 Methicillin resistant Staphylococcus aureus infection, unspecified site; L03.116 Cellulitis of left lower limb | CPT/HCPCS: 15271 ==

== ENCOUNTER → 2022-11-21 | Outpatient (CLI) | payer OTHER | LOC: WOUNDCARE 11:06 | PROVIDERS: ATTEND Family Medicine | DX: I96 Gangrene, not elsewhere classified (principal); I70.242 Atherosclerosis of native arteries of left leg with ulceration of calf; I87.332 Chronic venous hypertension (idiopathic) with ulcer and inflammation of left lower extremity; L97.222 Non-pressure chronic ulcer of left calf with fat layer exposed; A49.02 Methicillin resistant Staphylococcus aureus infection, unspecified site; I89.0 Lymphedema, not elsewhere classified; E55.9 Vitamin D deficiency, unspecified; R77.8 Other specified abnormalities of plasma proteins | CPT/HCPCS: 15271 ==

== ENCOUNTER → 2022-11-28 | Outpatient (CLI) | payer OTHER | LOC: WOUNDCARE 11:02 | PROVIDERS: ATTEND Family Medicine | DX: L97.222 Non-pressure chronic ulcer of left calf with fat layer exposed (principal); I70.242 Atherosclerosis of native arteries of left leg with ulceration of calf; I87.332 Chronic venous hypertension (idiopathic) with ulcer and inflammation of left lower extremity; I89.0 Lymphedema, not elsewhere classified; E55.9 Vitamin D deficiency, unspecified; R77.9 Abnormality of plasma protein, unspecified; I96 Gangrene, not elsewhere classified | CPT/HCPCS: 15271 ==

== ENCOUNTER → 2022-12-05 | Outpatient (CLI) | payer OTHER | LOC: WOUNDCARE 11:04 | PROVIDERS: ATTEND Family Medicine | DX: L97.222 Non-pressure chronic ulcer of left calf with fat layer exposed (principal); I70.242 Atherosclerosis of native arteries of left leg with ulceration of calf; I87.332 Chronic venous hypertension (idiopathic) with ulcer and inflammation of left lower extremity; I89.0 Lymphedema, not elsewhere classified; E55.9 Vitamin D deficiency, unspecified; R77.9 Abnormality of plasma protein, unspecified; I96 Gangrene, not elsewhere classified | CPT/HCPCS: 15271 ==

== ENCOUNTER → 2022-12-12 | Outpatient (CLI) | payer OTHER | LOC: WOUNDCARE 11:09 | PROVIDERS: ATTEND Family Medicine | DX: L97.222 Non-pressure chronic ulcer of left calf with fat layer exposed (principal); I70.242 Atherosclerosis of native arteries of left leg with ulceration of calf; I87.332 Chronic venous hypertension (idiopathic) with ulcer and inflammation of left lower extremity; I89.0 Lymphedema, not elsewhere classified; E55.9 Vitamin D deficiency, unspecified; R77.8 Other specified abnormalities of plasma proteins; I96 Gangrene, not elsewhere classified | CPT/HCPCS: 15271 ==

== ENCOUNTER → 2022-12-19 | Outpatient (CLI) | payer OTHER | LOC: WOUNDCARE 11:04 | PROVIDERS: ATTEND Family Medicine | DX: I96 Gangrene, not elsewhere classified (principal); I70.242 Atherosclerosis of native arteries of left leg with ulceration of calf; I87.332 Chronic venous hypertension (idiopathic) with ulcer and inflammation of left lower extremity; I89.0 Lymphedema, not elsewhere classified; L97.222 Non-pressure chronic ulcer of left calf with fat layer exposed; E55.9 Vitamin D deficiency, unspecified; R77.8 Other specified abnormalities of plasma proteins | CPT/HCPCS: 87070; 87077; 87205 ==

== ENCOUNTER → 2022-12-26 | Outpatient (CLI) | payer OTHER | LOC: WOUNDCARE 11:04 | PROVIDERS: ATTEND Family Medicine | DX: I70.242 Atherosclerosis of native arteries of left leg with ulceration of calf (principal); L97.222 Non-pressure chronic ulcer of left calf with fat layer exposed; I87.333 Chronic venous hypertension (idiopathic) with ulcer and inflammation of bilateral lower extremity; I89.0 Lymphedema, not elsewhere classified; R77.8 Other specified abnormalities of plasma proteins; B35.4 Tinea corporis; I96 Gangrene, not elsewhere classified; E55.9 Vitamin D deficiency, unspecified | CPT/HCPCS: 15271 ==

== ENCOUNTER → 2023-01-02 | Outpatient (CLI) | payer OTHER | LOC: WOUNDCARE 11:01 | PROVIDERS: ATTEND Family Medicine | DX: L97.229 Non-pressure chronic ulcer of left calf with unspecified severity (principal); J44.9 Chronic obstructive pulmonary disease, unspecified; I10 Essential (primary) hypertension | CPT/HCPCS: 29581 ==

== ENCOUNTER → 2023-01-09 | Outpatient (CLI) | payer OTHER | LOC: WOUNDCARE 10:57 | PROVIDERS: ATTEND Family Medicine | DX: L97.222 Non-pressure chronic ulcer of left calf with fat layer exposed (principal); I70.242 Atherosclerosis of native arteries of left leg with ulceration of calf; I87.312 Chronic venous hypertension (idiopathic) with ulcer of left lower extremity; I89.0 Lymphedema, not elsewhere classified; E55.9 Vitamin D deficiency, unspecified; R77.9 Abnormality of plasma protein, unspecified; I96 Gangrene, not elsewhere classified | CPT/HCPCS: 15271 ==

== ENCOUNTER → 2023-01-16 | Outpatient (CLI) | payer OTHER | LOC: WOUNDCARE 11:07 | PROVIDERS: ATTEND Family Medicine | DX: I96 Gangrene, not elsewhere classified (principal); I87.332 Chronic venous hypertension (idiopathic) with ulcer and inflammation of left lower extremity; I70.242 Atherosclerosis of native arteries of left leg with ulceration of calf; I89.0 Lymphedema, not elsewhere classified; L97.222 Non-pressure chronic ulcer of left calf with fat layer exposed; E55.9 Vitamin D deficiency, unspecified; R77.8 Other specified abnormalities of plasma proteins | CPT/HCPCS: 11042 ==

== ENCOUNTER → 2023-01-23 | Outpatient (CLI) | payer OTHER | LOC: WOUNDCARE 10:59 | PROVIDERS: ATTEND Family Medicine | DX: L97.222 Non-pressure chronic ulcer of left calf with fat layer exposed (principal); I70.242 Atherosclerosis of native arteries of left leg with ulceration of calf; I87.332 Chronic venous hypertension (idiopathic) with ulcer and inflammation of left lower extremity; I89.0 Lymphedema, not elsewhere classified; E55.9 Vitamin D deficiency, unspecified; R77.9 Abnormality of plasma protein, unspecified; B86 Scabies; I96 Gangrene, not elsewhere classified | CPT/HCPCS: 11042 ==

== ENCOUNTER → 2023-01-30 | Outpatient (CLI) | payer OTHER | LOC: WOUNDCARE 11:01 | PROVIDERS: ATTEND Family Medicine | DX: L97.222 Non-pressure chronic ulcer of left calf with fat layer exposed (principal); I70.242 Atherosclerosis of native arteries of left leg with ulceration of calf; I87.332 Chronic venous hypertension (idiopathic) with ulcer and inflammation of left lower extremity; I89.0 Lymphedema, not elsewhere classified; E55.9 Vitamin D deficiency, unspecified; R77.9 Abnormality of plasma protein, unspecified; L03.116 Cellulitis of left lower limb; I96 Gangrene, not elsewhere classified | CPT/HCPCS: 11042 ==

== ENCOUNTER → 2023-02-06 | Outpatient (CLI) | payer OTHER | LOC: WOUNDCARE 10:59 | PROVIDERS: ATTEND Family Medicine | DX: I89.0 Lymphedema, not elsewhere classified (principal); L03.116 Cellulitis of left lower limb; I70.242 Atherosclerosis of native arteries of left leg with ulceration of calf; I87.332 Chronic venous hypertension (idiopathic) with ulcer and inflammation of left lower extremity; E55.9 Vitamin D deficiency, unspecified; L97.222 Non-pressure chronic ulcer of left calf with fat layer exposed; I96 Gangrene, not elsewhere classified; R77.8 Other specified abnormalities of plasma proteins | CPT/HCPCS: 11042 ==

== ENCOUNTER → 2023-02-13 | Outpatient (CLI) | payer OTHER | LOC: ORTHO 11:02 | PROVIDERS: ATTEND Family Medicine | DX: L97.222 Non-pressure chronic ulcer of left calf with fat layer exposed (principal); L03.116 Cellulitis of left lower limb; I70.242 Atherosclerosis of native arteries of left leg with ulceration of calf; I87.332 Chronic venous hypertension (idiopathic) with ulcer and inflammation of left lower extremity; I89.0 Lymphedema, not elsewhere classified; E55.9 Vitamin D deficiency, unspecified; R77.8 Other specified abnormalities of plasma proteins; I96 Gangrene, not elsewhere classified | CPT/HCPCS: 11042 ==

== ENCOUNTER → 2023-02-20 | Outpatient (CLI) | payer OTHER | LOC: WOUNDCARE 11:00 | PROVIDERS: ATTEND Family Medicine | DX: L97.222 Non-pressure chronic ulcer of left calf with fat layer exposed (principal); I70.242 Atherosclerosis of native arteries of left leg with ulceration of calf; I87.332 Chronic venous hypertension (idiopathic) with ulcer and inflammation of left lower extremity; I89.0 Lymphedema, not elsewhere classified; E55.9 Vitamin D deficiency, unspecified; R77.8 Other specified abnormalities of plasma proteins; L03.116 Cellulitis of left lower limb | CPT/HCPCS: 29581 ==

== ENCOUNTER → 2023-02-27 | Outpatient (CLI) | payer OTHER | LOC: WOUNDCARE 11:02 | PROVIDERS: ATTEND Family Medicine | DX: L97.222 Non-pressure chronic ulcer of left calf with fat layer exposed (principal); I70.242 Atherosclerosis of native arteries of left leg with ulceration of calf; I87.312 Chronic venous hypertension (idiopathic) with ulcer of left lower extremity; I89.0 Lymphedema, not elsewhere classified; E55.9 Vitamin D deficiency, unspecified; R77.9 Abnormality of plasma protein, unspecified | CPT/HCPCS: 99213 ==

== ENCOUNTER → 2023-05-18 | Outpatient (CLI) | payer OTHER | LOC: WOUNDCARE 08:45 | PROVIDERS: ATTEND Family Medicine | DX: I96 Gangrene, not elsewhere classified (principal); L97.222 Non-pressure chronic ulcer of left calf with fat layer exposed; L97.322 Non-pressure chronic ulcer of left ankle with fat layer exposed; L97.312 Non-pressure chronic ulcer of right ankle with fat layer exposed; L03.116 Cellulitis of left lower limb; I89.0 Lymphedema, not elsewhere classified; I87.333 Chronic venous hypertension (idiopathic) with ulcer and inflammation of bilateral lower extremity; I70.242 Atherosclerosis of native arteries of left leg with ulceration of calf; F17.210 Nicotine dependence, cigarettes, uncomplicated | CPT/HCPCS: 11042; 11045; 87070; 87205 ==

== ENCOUNTER → 2023-05-24 | Outpatient (CLI) | payer OTHER | LOC: WOUNDCARE 10:35 | PROVIDERS: ATTEND Family Medicine | DX: I96 Gangrene, not elsewhere classified (principal); L97.222 Non-pressure chronic ulcer of left calf with fat layer exposed; I89.0 Lymphedema, not elsewhere classified; L97.312 Non-pressure chronic ulcer of right ankle with fat layer exposed; L97.322 Non-pressure chronic ulcer of left ankle with fat layer exposed; L03.116 Cellulitis of left lower limb; F17.210 Nicotine dependence, cigarettes, uncomplicated; I87.333 Chronic venous hypertension (idiopathic) with ulcer and inflammation of bilateral lower extremity; I70.248 Atherosclerosis of native arteries of left leg with ulceration of other part of lower leg | CPT/HCPCS: 11042; 11045 ==

== ENCOUNTER → 2023-05-28 | Outpatient (CLI) | payer OTHER | LOC: WOUNDCARE 11:04 | PROVIDERS: ATTEND Family Medicine | DX: T14.8XXA Other injury of unspecified body region, initial encounter (principal); J44.9 Chronic obstructive pulmonary disease, unspecified; I10 Essential (primary) hypertension | CPT/HCPCS: 29581 ==

== ENCOUNTER → 2023-05-31 | Outpatient (CLI) | payer OTHER | LOC: WOUNDCARE 10:33 | PROVIDERS: ATTEND Family Medicine | DX: L97.222 Non-pressure chronic ulcer of left calf with fat layer exposed (principal); L97.322 Non-pressure chronic ulcer of left ankle with fat layer exposed; I89.0 Lymphedema, not elsewhere classified; F17.210 Nicotine dependence, cigarettes, uncomplicated; I87.333 Chronic venous hypertension (idiopathic) with ulcer and inflammation of bilateral lower extremity; I70.242 Atherosclerosis of native arteries of left leg with ulceration of calf; G90.09 Other idiopathic peripheral autonomic neuropathy; I96 Gangrene, not elsewhere classified | CPT/HCPCS: 11042 ==

== ENCOUNTER → 2023-06-04 | Outpatient (CLI) | payer OTHER | LOC: WOUNDCARE 10:38 | PROVIDERS: ATTEND Family Medicine | DX: I96 Gangrene, not elsewhere classified (principal); L97.222 Non-pressure chronic ulcer of left calf with fat layer exposed; I89.0 Lymphedema, not elsewhere classified; J44.9 Chronic obstructive pulmonary disease, unspecified; I10 Essential (primary) hypertension; I82.409 Acute embolism and thrombosis of unspecified deep veins of unspecified lower extremity ==

== ENCOUNTER → 2023-06-07 | Outpatient (CLI) | payer OTHER | LOC: WOUNDCARE 10:28 | PROVIDERS: ATTEND Family Medicine | DX: L97.222 Non-pressure chronic ulcer of left calf with fat layer exposed (principal); L97.322 Non-pressure chronic ulcer of left ankle with fat layer exposed; L97.312 Non-pressure chronic ulcer of right ankle with fat layer exposed; I89.0 Lymphedema, not elsewhere classified; F17.210 Nicotine dependence, cigarettes, uncomplicated; I87.333 Chronic venous hypertension (idiopathic) with ulcer and inflammation of bilateral lower extremity; I70.242 Atherosclerosis of native arteries of left leg with ulceration of calf; G90.09 Other idiopathic peripheral autonomic neuropathy; I96 Gangrene, not elsewhere classified | CPT/HCPCS: 11042 ==

== ENCOUNTER → 2023-06-14 | Outpatient (CLI) | payer OTHER | LOC: WOUNDCARE 10:34 | PROVIDERS: ATTEND Family Medicine | DX: I96 Gangrene, not elsewhere classified (principal); L97.222 Non-pressure chronic ulcer of left calf with fat layer exposed; L97.312 Non-pressure chronic ulcer of right ankle with fat layer exposed; L97.322 Non-pressure chronic ulcer of left ankle with fat layer exposed; I89.0 Lymphedema, not elsewhere classified; I87.333 Chronic venous hypertension (idiopathic) with ulcer and inflammation of bilateral lower extremity; I70.242 Atherosclerosis of native arteries of left leg with ulceration of calf; G90.09 Other idiopathic peripheral autonomic neuropathy; F17.210 Nicotine dependence, cigarettes, uncomplicated | CPT/HCPCS: 11042 ==

== ENCOUNTER → 2023-06-21 | Outpatient (CLI) | payer OTHER | LOC: WOUNDCARE 10:09 | PROVIDERS: ATTEND Family Medicine | DX: I96 Gangrene, not elsewhere classified (principal); L97.222 Non-pressure chronic ulcer of left calf with fat layer exposed; L97.322 Non-pressure chronic ulcer of left ankle with fat layer exposed; I89.0 Lymphedema, not elsewhere classified; I87.333 Chronic venous hypertension (idiopathic) with ulcer and inflammation of bilateral lower extremity; I70.242 Atherosclerosis of native arteries of left leg with ulceration of calf; G90.09 Other idiopathic peripheral autonomic neuropathy; F17.210 Nicotine dependence, cigarettes, uncomplicated | CPT/HCPCS: 11042 ==

== ENCOUNTER → 2023-06-28 | Outpatient (CLI) | payer OTHER | LOC: WOUNDCARE 10:28 | PROVIDERS: ATTEND Family Medicine | DX: I96 Gangrene, not elsewhere classified (principal); L97.222 Non-pressure chronic ulcer of left calf with fat layer exposed; L97.322 Non-pressure chronic ulcer of left ankle with fat layer exposed; I89.0 Lymphedema, not elsewhere classified; F17.210 Nicotine dependence, cigarettes, uncomplicated; I87.333 Chronic venous hypertension (idiopathic) with ulcer and inflammation of bilateral lower extremity; I70.242 Atherosclerosis of native arteries of left leg with ulceration of calf; G90.09 Other idiopathic peripheral autonomic neuropathy | CPT/HCPCS: 11042 ==

== ENCOUNTER → 2023-07-05 | Outpatient (CLI) | payer OTHER | LOC: WOUNDCARE 10:30 | PROVIDERS: ATTEND Family Medicine | DX: I96 Gangrene, not elsewhere classified (principal); L97.222 Non-pressure chronic ulcer of left calf with fat layer exposed; L97.322 Non-pressure chronic ulcer of left ankle with fat layer exposed; I89.0 Lymphedema, not elsewhere classified; I87.333 Chronic venous hypertension (idiopathic) with ulcer and inflammation of bilateral lower extremity; I70.242 Atherosclerosis of native arteries of left leg with ulceration of calf; G90.09 Other idiopathic peripheral autonomic neuropathy; F17.210 Nicotine dependence, cigarettes, uncomplicated | CPT/HCPCS: 11042 ==

== ENCOUNTER → 2023-07-12 | Outpatient (CLI) | payer OTHER | LOC: WOUNDCARE 10:57 | PROVIDERS: ATTEND Family Medicine | DX: L97.222 Non-pressure chronic ulcer of left calf with fat layer exposed (principal); L97.322 Non-pressure chronic ulcer of left ankle with fat layer exposed; I89.0 Lymphedema, not elsewhere classified; F17.210 Nicotine dependence, cigarettes, uncomplicated; I87.333 Chronic venous hypertension (idiopathic) with ulcer and inflammation of bilateral lower extremity; I70.242 Atherosclerosis of native arteries of left leg with ulceration of calf; G90.09 Other idiopathic peripheral autonomic neuropathy; I96 Gangrene, not elsewhere classified | CPT/HCPCS: 11042 ==

== ENCOUNTER → 2023-07-26 | Outpatient (CLI) | payer OTHER | LOC: WOUNDCARE 10:57 | PROVIDERS: ATTEND Family Medicine | DX: I96 Gangrene, not elsewhere classified (principal); L97.222 Non-pressure chronic ulcer of left calf with fat layer exposed; L97.322 Non-pressure chronic ulcer of left ankle with fat layer exposed; I89.0 Lymphedema, not elsewhere classified; I87.333 Chronic venous hypertension (idiopathic) with ulcer and inflammation of bilateral lower extremity; I70.242 Atherosclerosis of native arteries of left leg with ulceration of calf; G90.09 Other idiopathic peripheral autonomic neuropathy; F17.210 Nicotine dependence, cigarettes, uncomplicated | CPT/HCPCS: 11042 ==

== ENCOUNTER → 2023-08-16 | Outpatient (CLI) | payer OTHER | LOC: WOUNDCARE 10:39 | PROVIDERS: ATTEND Family Medicine | DX: I96 Gangrene, not elsewhere classified (principal); L97.222 Non-pressure chronic ulcer of left calf with fat layer exposed; L97.322 Non-pressure chronic ulcer of left ankle with fat layer exposed; I89.0 Lymphedema, not elsewhere classified; F17.210 Nicotine dependence, cigarettes, uncomplicated; I87.333 Chronic venous hypertension (idiopathic) with ulcer and inflammation of bilateral lower extremity; I70.242 Atherosclerosis of native arteries of left leg with ulceration of calf; G90.09 Other idiopathic peripheral autonomic neuropathy; L03.116 Cellulitis of left lower limb | CPT/HCPCS: 11042; 87070; 87205 ==

== ENCOUNTER → 2023-08-23 | Outpatient (CLI) | payer OTHER | LOC: WOUNDCARE 10:37 | PROVIDERS: ATTEND Family Medicine | DX: I96 Gangrene, not elsewhere classified (principal); I87.333 Chronic venous hypertension (idiopathic) with ulcer and inflammation of bilateral lower extremity; I70.242 Atherosclerosis of native arteries of left leg with ulceration of calf; L97.222 Non-pressure chronic ulcer of left calf with fat layer exposed; L97.322 Non-pressure chronic ulcer of left ankle with fat layer exposed; I89.0 Lymphedema, not elsewhere classified; F17.210 Nicotine dependence, cigarettes, uncomplicated; G90.09 Other idiopathic peripheral autonomic neuropathy | CPT/HCPCS: 11042 ==

== ENCOUNTER → 2023-08-30 | Outpatient (CLI) | payer OTHER | LOC: WOUNDCARE 10:19 | PROVIDERS: ATTEND Family Medicine | DX: I96 Gangrene, not elsewhere classified (principal); L97.222 Non-pressure chronic ulcer of left calf with fat layer exposed; L97.322 Non-pressure chronic ulcer of left ankle with fat layer exposed; I89.0 Lymphedema, not elsewhere classified; F17.210 Nicotine dependence, cigarettes, uncomplicated; I87.333 Chronic venous hypertension (idiopathic) with ulcer and inflammation of bilateral lower extremity; I70.242 Atherosclerosis of native arteries of left leg with ulceration of calf; G90.09 Other idiopathic peripheral autonomic neuropathy | CPT/HCPCS: 11042 ==

== ENCOUNTER → 2023-09-06 | Outpatient (CLI) | payer OTHER | LOC: WOUNDCARE 10:06 | PROVIDERS: ATTEND Family Medicine | DX: L97.222 Non-pressure chronic ulcer of left calf with fat layer exposed (principal); L97.322 Non-pressure chronic ulcer of left ankle with fat layer exposed; I89.0 Lymphedema, not elsewhere classified; I87.323 Chronic venous hypertension (idiopathic) with inflammation of bilateral lower extremity; I70.242 Atherosclerosis of native arteries of left leg with ulceration of calf; G90.09 Other idiopathic peripheral autonomic neuropathy; I96 Gangrene, not elsewhere classified | CPT/HCPCS: 11042 ==

== ENCOUNTER → 2023-09-06 | Outpatient (CLI) | payer OTHER ==
[~2023-09-06] MED LIST changes: +IOHEXOL 350 MG/ML 150 ML (OMNIPAQUE 350) VIAL IV ONE; +NS 100 ML (IVPB) BAG IV ONE
[2023-09-06 10:24] LABS: CREATININE SERUM 1.26 MG/DL (0.60-1.30)
--- NOTE | 2023-09-06 14:33 | Diagnostic Imaging Report ---
INDICATION: Peripheral vascular disease, venous stasis ulcers, previous skin grafting and vein stripping. COMPARISON: Exam is compared with a CT chest, abdomen, and pelvis non-enhanced performed in 2015. TECHNIQUE: Post IV contrast-enhanced CT angiogram aortoiliac and bilateral lower extremity runoffs performed with 2-D and 3-D reconstructions utilizing a CT angiogram technique. All CT scans use one or more of the following dose optimizing techniques: automated exposure control, MA and/or KvP adjustment based on patient size and exam type or iterative reconstruction. FINDINGS: The visible lower thoracic aorta and the abdominal aorta are patent and normal in caliber with normal distal tapering. No significant aortic plaque. Celiac, superior mesenteric, inferior mesenteric, and bilateral renal arteries as well as those vessels' primary branches were all widely patent. No thrombus. No findings of end organ ischemia. The aorta's bifurcation is patent. There is mild non-stenosing calcified plaque in the bilateral common iliacs. The bilateral external iliacs are widely patent. There is no hypogastric aneurysm. Right Leg: Common femoral and superficial femoral as well as profunda are widely patent. There is some mild mixed calcified and soft plaque at the popliteal segment resulting in 30% stenosis. The common tibioperoneal trunk is patent, and there is a three-vessel runoff to the ankle. Left Leg: Common femoral is patent. The profunda and SFAs are widely patent. Minimal non-stenosing calcified plaque at the popliteal is present. Common tibioperoneal trunk is patent, and there is a three-vessel runoff to the ankle. We do note left lower extremity skin thickening, irregularity, and prior surgical changes without fluid collection or bony destruction. Some venous varicosities in the upper thighs, greater left. Some mild left groin lymphadenopathy, likely reactive given the findings in the lower leg. No gas, foreign body, drainable fluid collection, or abscess. There is an IVC filter present. Liver, gallbladder, bile ducts, spleen, adrenals, and pancreas are nonacute. Kidneys are unobstructed. No ileus or bowel obstruction. There is thickening of the urinary bladder's wall; however, it is not well distended and there was no perivesical edema. This is likely physiologic, but correlate for symptoms of cystitis. IMPRESSION: 1. No hemodynamically significant aortoiliac or runoff stenosis with three-vessel runoffs to the ankles bilaterally. 2. No findings of end organ ischemia. 3. Postsurgical changes to the left lower leg with some skin thickening; correlate for cellulitis. There is likely some mild reactive left groin lymphadenopathy. Dictated by: Dictated on workstation # [id number]
== END ==
LOC: RAD 12:55
PROVIDERS: ATTEND Internal Medicine Cardiovascular Disease
DX: I73.9 Peripheral vascular disease, unspecified (principal); I25.10 Atherosclerotic heart disease of native coronary artery without angina pectoris; I10 Essential (primary) hypertension; I83.009 Varicose veins of unspecified lower extremity with ulcer of unspecified site; L97.909 Non-pressure chronic ulcer of unspecified part of unspecified lower leg with unspecified severity; Z98.890 Other specified postprocedural states
CPT/HCPCS: 36415; 75635; 82565; 84520

== ENCOUNTER → 2023-09-12 | Outpatient (CLI) | payer OTHER ==
[~2023-09-12] MED LIST changes: -IOHEXOL 350 MG/ML 150 ML (OMNIPAQUE 350) VIAL IV ONE; -NS 100 ML (IVPB) BAG IV ONE
== END ==
LOC: WOUNDCARE 10:26
PROVIDERS: ATTEND Family Medicine
DX: L97.222 Non-pressure chronic ulcer of left calf with fat layer exposed (principal); L97.322 Non-pressure chronic ulcer of left ankle with fat layer exposed; I89.0 Lymphedema, not elsewhere classified; I87.333 Chronic venous hypertension (idiopathic) with ulcer and inflammation of bilateral lower extremity; I70.242 Atherosclerosis of native arteries of left leg with ulceration of calf; G90.09 Other idiopathic peripheral autonomic neuropathy
CPT/HCPCS: 29581

== ENCOUNTER → 2023-09-20 | Outpatient (CLI) | payer OTHER | LOC: WOUNDCARE 08:51 | PROVIDERS: ATTEND Family Medicine | DX: I87.333 Chronic venous hypertension (idiopathic) with ulcer and inflammation of bilateral lower extremity (principal); L97.222 Non-pressure chronic ulcer of left calf with fat layer exposed; L97.322 Non-pressure chronic ulcer of left ankle with fat layer exposed; I89.0 Lymphedema, not elsewhere classified; I70.242 Atherosclerosis of native arteries of left leg with ulceration of calf; G90.09 Other idiopathic peripheral autonomic neuropathy | CPT/HCPCS: 29581 ==

== ENCOUNTER → 2023-09-27 | Outpatient (CLI) | payer OTHER | LOC: WOUNDCARE 10:23 | PROVIDERS: ATTEND Family Medicine | DX: I96 Gangrene, not elsewhere classified (principal); L97.322 Non-pressure chronic ulcer of left ankle with fat layer exposed; I89.0 Lymphedema, not elsewhere classified; I70.242 Atherosclerosis of native arteries of left leg with ulceration of calf; G90.09 Other idiopathic peripheral autonomic neuropathy; I83.222 Varicose veins of left lower extremity with both ulcer of calf and inflammation | CPT/HCPCS: 11042 ==